=== PATIENT | female | born 1955 | race Caucasian/White ===

== ENCOUNTER → 2016-11-18 | Outpatient (CLI) | payer MEDICAID ==
[2016-11-18 09:25] LABS: Basophils # (A) 0.1 k/uL (0-0.2); Basophils % (A) 1 %; CH 30.5; CHCM 34.4; Eosinophils # (A) 0.3 k/uL (0-0.7); Eosinophils % (A) 3 %; HCT 42.2 % (34.0-46.0); HDW 2.84; HGB 14.1 gm/dL (11.4-16.0); Luc # (Auto) 0.23; Luc % (Auto) 3; Lymphocytes # (A) 2.3 k/uL (1.0-4.8); Lymphocytes % (A) 26 %; MCH 29.9 pg (25.0-35.0); MCHC 33.5 g/dL (31.0-37.0); MCV 89.2 fL (80.0-100.0); Mean Platelet Volume 7.8; Monocytes # (A) 0.4 k/uL (0-1.0); Monocytes % (A) 4 %; Neutrophils # (A) 5.5 k/uL (1.3-7.7); Neutrophils % (A) 63 %; RBC 4.73 m/uL (3.80-5.40); RDW 13.1 % (11.5-15.5); WBC 8.8 k/uL (3.8-10.6); WBC (Perox) 8.63
[2016-11-18 09:58] LABS: Hemoglobin A1C 5.3 % (4.2-6.1)
[2016-11-18 10:17] LABS: ALT 25 U/L (9-52); AST 21 U/L (14-36); Alkaline Phosphatase 79 U/L (38-126); Anion Gap 11 mmol/L; Blood Urea Nitrogen 17 mg/dL (7-17); Calcium 9.7 mg/dL (8.4-10.2); Carbon Dioxide 27 mmol/L (22-30); Chloride 105 mmol/L (98-107); Cholesterol 188 mg/dL (<200); Glucose 96 mg/dL (74-99); HDL Cholesterol 45 mg/dL (40-60); Non-African American GFR(MDRD) >60 (>60 ml/min/1.73 sqM); Potassium 4.6 mmol/L (3.5-5.1); Sodium 143 mmol/L (137-145); Total Bilirubin 0.6 mg/dL (0.2-1.3); Total Protein 7.2 g/dL (6.3-8.2); Triglycerides 138 mg/dL (<150)
== END ==
LOC: LABWHC1 08:26
PROVIDERS: ATTEND Internal Medicine Geriatric Medicine
DX: E78.00 Pure hypercholesterolemia, unspecified (principal); R03.0 Elevated blood-pressure reading, without diagnosis of hypertension; R73.9 Hyperglycemia, unspecified
CPT/HCPCS: 36415; 80053; 80061; 83036; 84439; 84443; 85025

== ENCOUNTER → 2017-06-30 | Outpatient (CLI) | payer MEDICAID ==
--- NOTE | 2017-07-01 08:35 | MM ---
Reason for exam: screening (asymptomatic). Last mammogram was performed 1 year and 11 months ago. History: Patient is postmenopausal. Took hormonal contraceptives for 6 months beginning at age 20. Physical Findings: A clinical breast exam by your physician is recommended on an annual basis and results should be correlated with mammographic findings. MG 3D Screening Mammo W/Cad Bilateral CC and MLO view(s) were taken. Prior study comparison: July 27, 2015, bilateral MG 3d work up w/cad ANU. July 19, 2015, bilateral MG screening mammo w CAD. There is chronic nodularity in the right breast. No significant changes when compared with prior studies. ASSESSMENT: Benign, BI-RAD 2 RECOMMENDATION: Routine screening mammogram of both breasts in 1 year.
== END | disposition home or self-care (01) ==
LOC: RADMAMWWP 09:37
PROVIDERS: ATTEND Internal Medicine Geriatric Medicine
DX: Z12.31 Encounter for screening mammogram for malignant neoplasm of breast (principal)
CPT/HCPCS: 77063; G0202

== ENCOUNTER 2017-10-18 10:12 | Emergency (ER) | payer MEDICAID ==
[2017-10-18 10:21] VITALS: BP 133/88; PULSE 89; RESP 16; TEMP 98.1
[2017-10-18] MEDS ORDERED: PROPARACAINE 0.5% OPHTH DROPS 15 ML BTL ONE (10:37)
[2017-10-18] MEDS ORDERED: PROPARACAINE 0.5% OPHTH DROPS 15 ML BTL RIGHT EYE STA (10:53)
--- NOTE | 2017-10-18 10:56 | ED ---
General Adult HPI - General Chief complaint: Eye Problems Stated complaint: VISUAL DISTURBANCE IN RT EYE Time Seen by Provider: 10/18/17 10:30 Source: patient, RN notes reviewed, old records reviewed Mode of arrival: ambulatory Limitations: no limitations - History of Present Illness Initial comments: 62-year-old female presents for evaluation of flashing and floating lights in her right eye. Patient has no significant past medical history. She did have an episode similar to this several months ago in her left eye. This was diagnosed as vitreous hemorrhage. She is seeing a cna hha and retinal specialist. Symptoms began yesterday evening. They are isolated to her right eye only. She denies any loss of vision, no darkening of the visual field. She does state that approximately 5 days ago her granddaughter bumped her right eye. She had no issues immediately following this injury. Denies any focal weakness. Denies vision changes. - Related Data Home Medications Medication Instructions Recorded Confirmed Ergocalciferol (Vitamin D2) 50,000 unit PO Q14D 06/13/14 07/09/17 [Drisdol] Lovastatin [Mevacor] 40 mg PO MOTUWETHFR 06/13/14 07/09/17 Melatonin 5 mg PO HS PRN 08/12/16 07/09/17 Cetirizine HCl [Zyrtec] 10 mg PO DAILY PRN 07/09/17 07/09/17 Ibuprofen [Motrin] 200 - 400 mg PO Q6HR PRN 07/09/17 07/09/17 Allergies Allergy/AdvReac Type Severity Reaction Status Date / Time codeine AdvReac Nausea Verified 10/18/17 10:21 Review of Systems ROS Statement: Those systems with pertinent positive or pertinent negative responses have been documented in the HPI. ROS Other: All systems not noted in ROS Statement are negative. Past Medical History Past Medical History: Hyperlipidemia Additional Past Medical History / Comment(s): hx gestational hypertension, hx anemia, hx polyps, hemorrhage left eye History of Any Multi-Drug Resistant Organisms: None Reported Past Surgical History: Hysterectomy, Orthopedic Surgery Additional Past Surgical History / Comment(s): suad hands trigger finger, D&C, retrocele repair, hemorrhoidectomy Past Anesthesia/Blood Transfusion Reactions: Motion Sickness, Postoperative Nausea & Vomiting (PONV) Past Psychological History: No Psychological Hx Reported Smoking Status: Never smoker Past Alcohol Use History: Occasional Past Drug Use History: None Reported - Past Family History Sister(s) Family Medical History: Cancer General Exam Limitations: no limitations General appearance: alert, in no apparent distress Head exam: Present: atraumatic, normocephalic Eye exam: Present: normal appearance, PERRL, EOMI. Absent: scleral icterus, conjunctival injection, nystagmus, periorbital swelling, periorbital tenderness ENT exam: Present: normal exam Neck exam: Present: normal inspection. Absent: tenderness, meningismus Respiratory exam: Present: normal lung sounds bilaterally, respiratory distress Cardiovascular Exam: Present: regular rate, normal rhythm GI/Abdominal exam: Present: soft. Absent: distended, tenderness Extremities exam: Present: normal inspection, normal capillary refill. Absent: pedal edema Neurological exam: Present: alert, oriented X3, CN II-XII intact, normal gait. Absent: motor sensory deficit Psychiatric exam: Present: normal affect, normal mood Skin exam: Present: warm, dry, intact. Absent: cyanosis, diaphoretic Course Vital Signs 10/18/17 10:18 Temperature 98.1 F Pulse Rate 89 Respiratory 16 Rate Blood Pressure 133/88 O2 Sat by Pulse 98 Oximetry Medical Decision Making - Medical Decision Making 62-year-old female presenting with floaters or flashers in her right eye. On exam patient is well-appearing, no acute distress, nonfocal neurologic exam. Visualization of the anterior eye is within normal limits, normal pupillary reflex, no corneal abrasion. Intraocular pressure in the right eye is 13. Visual acuity 20/25. No visual field deficit. Ultrasound of the right globe shows several hyperechoic flashers in the posterior vitreous. No retinal detachment. Case is discussed with Dr. Kearney, patient's cna hha, he will see the patient on Friday for further evaluation. No other intervention needed at this time. Diagnosis: Concern for vitreous hemorrhage Disposition Clinical Impression: Vitreous hemorrhage Disposition: HOME SELF-CARE Condition: Good Instructions: Visual Floaters (ED) Referrals: Sami Soriano MD [Primary Care Provider] - 1-2 days Ramos Kearney MD [STAFF PHYSICIAN] - 1-2 days Time of Disposition: 10:56
== END 2017-10-18 11:07 | disposition home or self-care (01) ==
LOC: EC 10:12
DX: H43.11 Vitreous hemorrhage, right eye (principal); E78.5 Hyperlipidemia, unspecified; D64.9 Anemia, unspecified; Z79.899 Other long term (current) drug therapy; Z88.5 Allergy status to narcotic agent
CPT/HCPCS: 99283

== ENCOUNTER → 2017-12-02 | Outpatient (CLI) | payer MEDICAID ==
[2017-12-02 08:55] LABS: Basophils # (A) 0.1 k/uL (0-0.2); Basophils % (A) 1 %; Eosinophils # (A) 0.3 k/uL (0-0.7); Eosinophils % (A) 3 %; HCT 40.8 % (34.0-46.0); HGB 14.2 gm/dL (11.4-16.0); Lymphocytes # (A) 2.3 k/uL (1.0-4.8); Lymphocytes % (A) 28 %; MCH 29.9 pg (25.0-35.0); MCHC 34.8 g/dL (31.0-37.0); MCV 85.9 fL (80.0-100.0); Mean Platelet Volume 7.1; Monocytes # (A) 0.4 k/uL (0-1.0); Monocytes % (A) 5 %; Neutrophils # (A) 5.1 k/uL (1.3-7.7); Neutrophils % (A) 61 %; Platelet Count 343 k/uL (150-450); RBC 4.74 m/uL (3.80-5.40); RDW 12.7 % (11.5-15.5); WBC 8.3 k/uL (3.8-10.6)
[2017-12-02 09:11] LABS: T4, Free (Free Thyroxine) 0.96 ng/dL (0.78-2.19)
[2017-12-02 09:13] LABS: ALT 35 U/L (9-52); AST 19 U/L (14-36); Albumin 3.9 g/dL (3.5-5.0); Alkaline Phosphatase 77 U/L (38-126); Anion Gap 12 mmol/L; Blood Urea Nitrogen 19 mg/dL (7-17); Calcium 9.8 mg/dL (8.4-10.2); Carbon Dioxide 25 mmol/L (22-30); Chloride 107 mmol/L (98-107); Cholesterol 203 mg/dL (<200); Glucose 104 mg/dL (74-99); HDL Cholesterol 41 mg/dL (40-60); LDL Cholesterol,Calculated 135 mg/dL (0-99); Potassium 4.6 mmol/L (3.5-5.1); Sodium 144 mmol/L (137-145); Total Bilirubin 0.5 mg/dL (0.2-1.3); Total Protein 6.7 g/dL (6.3-8.2); Triglycerides 137 mg/dL (<150)
[2017-12-02 19:22] LABS: Hemoglobin A1C 5.4 % (4.0-6.0)
== END | disposition home or self-care (01) ==
LOC: LABWHC1 08:06
PROVIDERS: ATTEND Internal Medicine Geriatric Medicine
DX: E78.00 Pure hypercholesterolemia, unspecified (principal); R00.1 Bradycardia, unspecified; R13.10 Dysphagia, unspecified; R03.0 Elevated blood-pressure reading, without diagnosis of hypertension; R73.9 Hyperglycemia, unspecified
CPT/HCPCS: 36415; 80053; 80061; 83036; 84439; 84443; 85025

== ENCOUNTER 2017-12-10 08:54 | Day surgery (SDC) | payer MEDICAID ==
[2017-12-09 11:01] VITALS: BMI 33.9
[~2017-12-10 08:54] MED LIST: LACTATED RINGERS 1,000 ML IV SCH
[2017-12-10 10:54] VITALS: RESP 18; TEMP 98.3
[2017-12-10] MEDS ORDERED: LIDOCAINE 1% 20 ML VIAL (10MG/ML) FOR IV START INTRADERMA ONE (10:57)
[2017-12-10] MEDS ORDERED: PROPOFOL 10 MG/ML 20 ML VIAL IV ONE (11:16)
[2017-12-10] MEDS ORDERED: LIDOCAINE 1% INJ 10MG/ML (20 ML MDV) ONE (11:16)
[2017-12-10] MEDS ORDERED: fentaNYL (PF) 50 MCG/ML 2 ML AMP ONE (11:16)
--- NOTE | 2017-12-10 11:29 | P.PCN ---
Date of Procedure: 12/10/17 Procedure(s) Performed: BRIEF HISTORY: Patient is a 62-year-old, pleasant, white female, scheduled for an upper endoscopy as a part of evaluation of intermittent dysphagia to solids for the last 1 year duration. She has the symptoms once or twice a week often with bread and meat. She is hence scheduled for an upper endoscopy with possible dilation today. PROCEDURE PERFORMED: Esophagogastroduodenoscopy with biopsy. PREOPERATIVE DIAGNOSIS: .Intermittent dysphagia to solids of 1 year duration IV sedation per anesthesia. PROCEDURE: After informed consent was obtained, the patient was brought into the endoscopy unit. IV sedation was administered by Anesthesia under continuous monitoring. Initially the Olympus GIF-140 video endoscope was inserted into the mouth. Esophagus intubated without any difficulty. It was gradually advanced into the stomach and duodenum and carefully examined. The bulb and the second part of the duodenum appeared normal. The scope at this time was withdrawn to the stomach, adequately insufflated with air, and upon careful examination, mucosa of the antrum, had mild gastritis and biopsies for H. pylori were done. The body, cardia and the fundus appeared normal. The scope was then withdrawn into the esophagus. small sliding Hiatal hernia noted. The GE junction was located at 39 cm from the incisors. There were linear erosions and once position ulceration noted in the distal esophagus consistent with LA grade C reflux esophagitis. The rest of the esophagus appeared normal and the patient tolerated the procedure well. IMPRESSION: 1. Linear erosions in the distal esophagus consistent with LA grade C reflux esophagitis. 2. Early distal esophageal stricture. 3. Mild antral gastritis RECOMMENDATIONS: The findings of this examination were discussed with the patient as well as a family. She was advised to follow with the biopsy results. She will be started on Prilosec 20 mg daily to be taken half hour before breakfast and follow antireflux measures. She was advised to follow up in office in 6 weeks if she still has dysphagia.
[2017-12-10 11:58] VITALS: BP 135/93; PULSE 71
== END 2017-12-10 12:16 | disposition home or self-care (01) ==
LOC: ORWHC2ENDO 08:54
PROVIDERS: ATTEND Internal Medicine Gastroenterology
DX: K29.70 Gastritis, unspecified, without bleeding (principal); K44.9 Diaphragmatic hernia without obstruction or gangrene; K22.10 Ulcer of esophagus without bleeding; K22.2 Esophageal obstruction; E78.5 Hyperlipidemia, unspecified; E66.9 Obesity, unspecified; Z79.1 Long term (current) use of non-steroidal anti-inflammatories (NSAID); Z88.5 Allergy status to narcotic agent; Z90.710 Acquired absence of both cervix and uterus; Z68.33 Body mass index [BMI] 33.0-33.9, adult
CPT/HCPCS: 88305; 43239; J2001; J3010; J2704

== ENCOUNTER 2018-03-07 11:00 | Emergency (ER) | payer MEDICAID, OTHER ==
[2018-03-07 11:06] VITALS: BP 157/96; PULSE 94; RESP 18; TEMP 97.9
--- NOTE | 2018-03-07 12:22 | XR ---
EXAMINATION TYPE: XR scapula LT DATE OF EXAM: 03/07/2018 COMPARISON: NONE HISTORY: 62-year-old female with pain after fall today TECHNIQUE: 2 views FINDINGS: Mild degenerative joint space narrowing with marginal spurring and capsular hypertrophy of the acromi on clavicular joint. AC joint is intact. Visualized left hemithorax is clear. No acute fracture or di slocation seen. IMPRESSION: No acute osseous abnormality seen. Mild AC joint OA.
--- NOTE | 2018-03-07 12:23 | ED ---
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 Review of system is unremarkable otherwise - Related Data Home Medications Medication Instructions Recorded Confirmed Ergocalciferol (Vitamin D2) 50,000 unit PO Q14D 06/13/14 03/07/18 [Drisdol] Lovastatin [Mevacor] 40 mg PO MOTUWETHFR 06/13/14 03/07/18 Melatonin 5 mg PO HS PRN 08/12/16 03/07/18 Cetirizine HCl [Zyrtec] 10 mg PO DAILY PRN 07/09/17 03/07/18 Ibuprofen [Motrin] 200 - 400 mg PO Q6HR PRN 07/09/17 03/07/18 Omeprazole [PriLOSEC] 20 mg PO AC-BRKFST 03/07/18 03/07/18 Allergies Allergy/AdvReac Type Severity Reaction Status Date / Time codeine AdvReac Nausea Verified 03/07/18 11:06 Review of Systems ROS Statement: Those systems with pertinent positive or pertinent negative responses have been documented in the HPI. ROS Other: All systems not noted in ROS Statement are negative. Past Medical History Past Medical History: Eye Disorder, Hyperlipidemia Additional Past Medical History / Comment(s): hx anemia, hx polyps, hemorrhage both eye related to retinal tears, intermittent abd. discomfort History of Any Multi-Drug Resistant Organisms: None Reported Past Surgical History: Hysterectomy, Orthopedic Surgery Additional Past Surgical History / Comment(s): suad hands trigger finger, D&C, retrocele repair, hemorrhoidectomy Past Anesthesia/Blood Transfusion Reactions: Motion Sickness, Postoperative Nausea & Vomiting (PONV) Past Psychological History: No Psychological Hx Reported Smoking Status: Never smoker Past Alcohol Use History: None Reported Past Drug Use History: None Reported - Past Family History Sister(s) Family Medical History: Cancer General Exam - General Exam Comments Initial Comments: General: The patient is awake and alert, in no distress, and does not appear acutely ill. Skin: Skin is warm and dry and no rashes or lesions are noted. Eye: Pupils are equal, round and reactive to light, extra-ocular movements are intact; there is normal conjunctiva bilaterally. Ears, nose, mouth and throat: There are moist mucous membranes and no oral lesions. Neck: The neck is supple, there is no tenderness or JVD. Cardiovascular: There is a regular rate and rhythm. No murmur, rub or gallop is appreciated. Respiratory: To auscultation bilateral, no wheezing no rhonchi no distress respiratory martinez noticed Gastrointestinal: Soft, non-distended, non-tender abdomen without masses or organomegaly noted. There is no rebound or guarding present. Bowel sounds are unremarkable. Back: There is no tenderness to palpation in the midline. There is no obvious deformity. Musculoskeletal: Normal ROM, as well as right elbow is concerned and right knee both has a full range of motion no effusion or no trauma related changes noticed left shoulder has full range of motion patient is tender over the spine of the left scapula no tenderness no noticed over the before meals joint as well clavicle was palpated although of interest to all the way from sternal notch to the before meals joint. No tenderness noticed over the deltoid, triceps, biceps. No neurovascular compromise noticed of the left upper extremity Neurological: CN II-XII intact, Cranial nerves III through XII are intact. There are no obvious motor or sensory deficits. Coordination appears grossly intact. Speech is normal. Psychiatric: Cooperative, appropriate mood & affect, normal judgment. Limitations: no limitations Course Vital Signs 03/07/18 11:03 Temperature 97.9 F Pulse Rate 94 Respiratory 18 Rate Blood Pressure 157/96 O2 Sat by Pulse 98 Oximetry Disposition Clinical Impression: Fall, Abrasion, right knee, initial encounter, Injury of left shoulder Clinical Impression: (Ruled Out): Right shoulder injury Disposition: HOME SELF-CARE Condition: Good Instructions: Shoulder Sprain (ED) Additional Instructions: She is advised Tylenol or Motrin as needed basis, follow with family doctor or return to the ER if symptoms get worse Is patient prescribed a controlled substance at d/c from ED?: No Referrals: Sami Soriano MD [Primary Care Provider] - 1-2 days
== END 2018-03-07 12:37 | disposition home or self-care (01) ==
LOC: EC 11:00
DX: S80.211A Abrasion, right knee, initial encounter (principal); S49.92XA Unspecified injury of left shoulder and upper arm, initial encounter; S59.901A Unspecified injury of right elbow, initial encounter; E78.5 Hyperlipidemia, unspecified; Z79.899 Other long term (current) drug therapy; Z88.5 Allergy status to narcotic agent; Z87.19 Personal history of other diseases of the digestive system; W01.0XXA Fall on same level from slipping, tripping and stumbling without subsequent striking against object, initial encounter; Y92.238 Other place in hospital as the place of occurrence of the external cause; Y99.0 Civilian activity done for income or pay
CPT/HCPCS: 99283

== ENCOUNTER 2018-03-13 10:51 | Day surgery (SDC) | payer MEDICAID ==
[2018-03-09 16:05] VITALS: BMI 33.9
[~2018-03-13 10:51] MED LIST changes: +DEXAMETHASONE SOD PHOSPHATE 10 MG/ML 1 ML VIAL IV ONE; +HYDROmorphone 0.5 MG/0.5 ML SYRINGE IVP PRN; +MIDAZOLAM 2 MG/2 ML VIAL IV PRN; +ONDANSETRON 4 MG/2 ML VIAL IVP ONE; +ceFAZolin IN SWFI 2 GM/20 ML SYRINGE IVP ONE
[2018-03-13] MEDS ORDERED: SCOPOLAMINE 1.5MG/72HR PATCH TRANSDERM ONE (11:29)
[2018-03-13] MEDS ORDERED: LIDOCAINE 1% 20 ML VIAL (10MG/ML) FOR IV START INTRADERMA ONE (11:31)
[2018-03-13] MEDS ORDERED: SUCCINYLCHOLINE CHLORIDE 100 MG/5 ML SYR IV ONE (11:54)
[2018-03-13] MEDS ORDERED: MIDAZOLAM 2 MG/2 ML VIAL ONE (11:54)
[2018-03-13] MEDS ORDERED: fentaNYL (PF) 50 MCG/ML 2 ML AMP ONE (11:54)
[2018-03-13] MEDS ORDERED: LIDOCAINE 1% INJ 10MG/ML (20 ML MDV) ONE (11:54)
[2018-03-13] MEDS ORDERED: PROPOFOL 10 MG/ML 20 ML VIAL IV ONE (11:54)
[2018-03-13] MEDS ORDERED: HYDROmorphone (PF) 1 MG/ML ONE (11:54)
--- NOTE | 2018-03-13 12:51 | FL ---
EXAMINATION TYPE: FL guidance operating room DATE OF EXAM: 03/13/2018 FLUOROSCOPY Fluoroscopy time of 1 seconds was used during cheilectomy. 0 image/s document/s the procedure.
[2018-03-13 12:54] VITALS: TEMP 98
--- NOTE | 2018-03-13 13:06 | P.OP ---
Date of Procedure: 03/13/18 Preoperative Diagnosis: 1. Right hallux valgus Postoperative Diagnosis: Right hallux valgus Procedure(s) Performed: Right simple bunionectomy Anesthesia: HARDEEP Surgeon: Chemo Mathews Estimated Blood Loss (ml): 0 IV fluids (ml): 400 Pathology: none sent Condition: stable Disposition: PACU Indications for Procedure: The patient is a previously healthy 62-year-old female who presented to my office with a right hallux valgus deformity. We discussed both nonoperative and operative treatment. The patient has been dealing with this for over 6 months and has had multiple attempts at nonsurgical treatment all with diminishing relief. The patient requested surgery. We discussed different surgical options for her. The patient stated that she just wanted a simple bunionectomy and was not interested in any procedure that required a period of protected weightbearing. We discussed potential risks of doing an isolated supple bunionectomy including under correction and recurrence. The patient acknowledged these risks but stated she was willing to accept a recurrent deformity and only wanted to go forward with a simple bunionectomy. We discussed the potential risks and complications of surgery including but not limited to risk of anesthesia, risk of superficial infection, risk of deep infection, risk of delayed wound healing, risk of damage to local blood vessels or nerves, risk of intraoperative fracture, risk of postoperative fracture, risk of recurrent deformity, risk of hallux varus deformity, risk of chronic pain, risk of chronic swelling, dissatisfaction with surgery, DVT, PE, and possibly loss of life or limb. The patient voiced her understanding of all of these potential risks and that other complications are possible. She provided her verbal and written consent to go forward with surgery. Description of Procedure: The patient was identified in preoperative holding and the correct right leg was marked with my initials. I reviewed the consent form with the patient and all of her questions were answered. The patient was then brought back to the operating room by anesthesia. She was positioned on the OR table and a general anesthetic and preoperative antibiotics were administered. A tourniquet was applied to the proximal aspect of the right leg. All bony prominences were well -padded. The right leg was then prepped and draped in the standard sterile fashion. Prior to starting surgery timeout was performed identifying the correct patient, operative extremity, and procedure. The patient's leg was then elevated, exsanguinated with an Esmarch bandage, and the tourniquet was inflated to 250 mmHg. I began by outlining a dorsomedial incision over the first MTP joint. Skin incision was made to 15 blade scalpel. Dissection was carried down carefully to the subcutaneous tissue with tenotomy scissors. A capsulotomy was performed of the medial joint capsule. A microsagittal saw was then used to remove a small portion of the medial eminence taking care to stay medial to the sulcus. A rasp and rongeur was used to contour the bone. The wound was copiously irrigated. A small ellipse of the capsule was removed. The joint was distracted and a clean 15 blade knife was used to release the lateral aspect of the MTP joint through the joint. A varus force was applied to the toe to help correct the valgus deformity. The wound was again irrigated. A capsulorrhaphy was then prepared using 0 Vicryl [id number] stitches. Final fluoroscopic images were taken showing correction of the hallux valgus deformity. The deep subcu was reapproximated using 3-0 Monocryl. The skin was closed using 3-0 nylon horizontal mattress stitches. 10 mL's of half percent Marcaine was injected around the incision. A sterile dressing consisting of Betadine soaked Adaptic, 4 x 4, and web rolls were applied. The patient was awoken from her anesthetic, transferred to a gurney and brought to PACU having toe the procedure well.
--- NOTE | 2018-03-13 13:06 | XR ---
Limited right foot History: cheilectomy Intraoperative C-arm image documents the procedure
[2018-03-13] MEDS ORDERED: HYDROcodone/APAP 5-325MG 1 EACH TAB PO ONE (13:41)
[2018-03-13 14:07] VITALS: RESP 18
[2018-03-13 14:49] VITALS: BP 135/75; PULSE 74
== END 2018-03-13 14:01 | disposition home or self-care (01) ==
LOC: OR 10:51
PROVIDERS: ATTEND Orthopaedic Surgery
DX: M20.11 Hallux valgus (acquired), right foot (principal); M21.611 Bunion of right foot; M19.071 Primary osteoarthritis, right ankle and foot; E78.5 Hyperlipidemia, unspecified; K21.9 Gastro-esophageal reflux disease without esophagitis; Z79.1 Long term (current) use of non-steroidal anti-inflammatories (NSAID); Z79.899 Other long term (current) drug therapy; Z88.5 Allergy status to narcotic agent; Z87.891 Personal history of nicotine dependence
CPT/HCPCS: 73620; 28292; J2250; J1100; J2405; J2001; J3010; J1170; J0330; J2704; J0690

== ENCOUNTER 2018-10-20 10:18 | Emergency (ER) | payer MEDICAID ==
[2018-10-20 10:22] VITALS: RESP 18
[2018-10-20] MEDS ORDERED: ONDANSETRON 4 MG/2 ML VIAL IVP STA (12:45)
[2018-10-20] MEDS ORDERED: SODIUM CHLORIDE 0.9% 500 ML 500 ML IV STA (12:45)
[2018-10-20] MEDS ORDERED: diphenhydrAMINE 50 MG/ML 1 ML VIAL IVP STA (12:45)
--- NOTE | 2018-10-20 13:25 | CT ---
EXAMINATION TYPE: CT brain wo con DATE OF EXAM: 10/20/2018 COMPARISON: 03/29/2010 HISTORY: High blood pressure, dizziness. CT DLP: 1078.[address] of the brain was performed. The ventricles, basal cisterns and sulci overlying the cerebral convexities demonstrate mild enlargem ent. There is no evidence for intracranial hemorrhage or sulcal effacement. There is decreased attenuation about the periventricular white matter and deep white matter of both c erebral hemispheres, compatible with chronic small vessel ischemia. Differential diagnosis does inclu de demyelination. No mass effects are seen.No midline shift. Osseous calvarium is intact. If symptoms persist consider MRI. IMPRESSION: 1. Age related atrophic and chronic small vessel ischemic change without acute intracranial process s een at this time.
--- NOTE | 2018-10-20 13:30 | ED ---
Dizziness HPI - General Chief Complaint: Dizziness Stated Complaint: dizzy, nausea, elevated BP Time Seen by Provider: 10/20/18 12:29 Source: patient Mode of arrival: wheelchair Limitations: no limitations - History of Present Illness Initial Comments: This is a 63-year-old female the ER for evaluation. Patient has having vertiginous type symptoms, dizziness with ambulation and dizziness with position. She has had symptoms of dizziness before similar to this. No history of CVA. No trauma. No fevers. No modifying factors for improving symptoms, symptoms are worse with movement MD Complaint: dizziness, difficulty walking -: hour(s) Timing: gradual onset Description: "room spinning", off-balance History of Same: Yes History of Trauma: No Severity: mild Improves With: remaining still Worsens With: movement Associated Symptoms: denies other symptoms - Related Data Home Medications Medication Instructions Recorded Confirmed Ergocalciferol (Vitamin D2) 50,000 unit PO Q14D 06/13/14 10/20/18 [Drisdol] Lovastatin [Mevacor] 40 mg PO MOTUWETHFR 06/13/14 10/20/18 Cetirizine HCl [Zyrtec] 10 mg PO DAILY PRN 07/09/17 10/20/18 Ibuprofen [Motrin] 200 - 400 mg PO Q6HR PRN 07/09/17 10/20/18 Omeprazole [PriLOSEC] 20 mg PO MOTUWETHFR 03/07/18 10/20/18 Previous Rx's Medication Instructions Recorded Meclizine [Antivert] 25 mg PO TID #15 tab 10/20/18 Ondansetron Odt [Zofran ODT] 4 mg PO Q8HR PRN #10 tab 10/20/18 Allergies Allergy/AdvReac Type Severity Reaction Status Date / Time codeine AdvReac Nausea Verified 10/20/18 14:11 Review of Systems ROS Statement: Those systems with pertinent positive or pertinent negative responses have been documented in the HPI. ROS Other: All systems not noted in ROS Statement are negative. Past Medical History Past Medical History: Eye Disorder, Hyperlipidemia, Hypertension Additional Past Medical History / Comment(s): hx anemia, hx polyps, hemorrhage both eye related to retinal tears, intermittent abd. discomfort History of Any Multi-Drug Resistant Organisms: None Reported Past Surgical History: Hysterectomy, Orthopedic Surgery Additional Past Surgical History / Comment(s): suad hands trigger finger, D&C, retrocele repair, hemorrhoidectomy Past Anesthesia/Blood Transfusion Reactions: Motion Sickness, Postoperative Nausea & Vomiting (PONV) Past Psychological History: No Psychological Hx Reported Smoking Status: Former smoker Past Alcohol Use History: Occasional Past Drug Use History: None Reported - Past Family History Sister(s) Family Medical History: Cancer General Exam - General Exam Comments Initial Comments: NIH is 0, finger-nose is negative heel neely is negative Limitations: no limitations General appearance: alert, in no apparent distress Head exam: Present: atraumatic, normocephalic, normal inspection Eye exam: Present: normal appearance, PERRL, EOMI. Absent: scleral icterus, conjunctival injection, periorbital swelling ENT exam: Present: normal exam, mucous membranes moist Neck exam: Present: normal inspection. Absent: tenderness, meningismus, lymphadenopathy Respiratory exam: Present: normal lung sounds bilaterally. Absent: respiratory distress, wheezes, rales, rhonchi, stridor Cardiovascular Exam: Present: regular rate, normal rhythm, normal heart sounds. Absent: systolic murmur, diastolic murmur, rubs, gallop, clicks GI/Abdominal exam: Present: soft, normal bowel sounds. Absent: distended, tenderness, guarding, rebound, rigid Extremities exam: Present: normal inspection, full ROM, normal capillary refill. Absent: tenderness, pedal edema, joint swelling, calf tenderness Back exam: Present: normal inspection Neurological exam: Present: alert, oriented X3, CN II-XII intact Psychiatric exam: Present: normal affect, normal mood Skin exam: Present: warm, dry, intact, normal color. Absent: rash Course Vital Signs 10/20/18 10/20/18 10:20 14:22 Temperature 97.5 F L 97.8 F Pulse Rate 80 84 Respiratory 18 18 Rate Blood Pressure 163/92 158/78 O2 Sat by Pulse 97 98 Oximetry - Reevaluation(s) Reevaluation #1: 10/20/18 16:44 Medical record is reviewed Reevaluation #2: 10/20/18 16:44 Dr. Dennis did evaluate patient here in the emergency room Reevaluation #3: 10/20/18 16:44 Patient is able to actively without any difficulty or ataxia EKG Findings - EKG Comments: EKG Findings:: EKG shows sinus rhythm rate of 71, MD 72, QRS 100, QTC 447 Medical Decision Making - Medical Decision Making 63 female the ER for evaluation of dizziness vertiginous symptoms. CT brain negative labwork is normal. Patient was seen in ER by Dr. cisneros her will see patient on outpatient basis - Lab Data Result diagrams: 10/20/18 13:26 10/20/18 13:26 Lab Results 10/20/18 10/20/18 Range/Units 13:26 13:26 WBC 10.2 (3.8-10.6) k/uL RBC 4.84 (3.80-5.40) m/uL Hgb 14.1 (11.4-16.0) gm/dL Hct 42.4 (34.0-46.0) % MCV 87.7 (80.0-100.0) fL MCH 29.2 (25.0-35.0) pg MCHC 33.3 (31.0-37.0) g/dL RDW 13.3 (11.5-15.5) % Plt Count 348 (150-450) k/uL Neutrophils % 80 % Lymphocytes % 14 % Monocytes % 3 % Eosinophils % 1 % Basophils % 1 % Neutrophils # 8.2 H (1.3-7.7) k/uL Lymphocytes # 1.4 (1.0-4.8) k/uL Monocytes # 0.4 (0-1.0) k/uL Eosinophils # 0.1 (0-0.7) k/uL Basophils # 0.1 (0-0.2) k/uL Sodium 142 (137-145) mmol/L Potassium 4.3 (3.5-5.1) mmol/L Chloride 107 (98-107) mmol/L Carbon Dioxide 27 (22-30) mmol/L Anion Gap 8 mmol/L BUN 17 (7-17) mg/dL Creatinine 0.74 (0.52-1.04) mg/dL Est GFR (CKD-EPI)AfAm >90 (>60 ml/min/1.73 sqM) Est GFR (CKD-EPI)NonAf 87 (>60 ml/min/1.73 sqM) Glucose 114 H (74-99) mg/dL Calcium 9.9 (8.4-10.2) mg/dL Total Bilirubin 0.7 (0.2-1.3) mg/dL AST 22 (14-36) U/L ALT 34 (9-52) U/L Alkaline Phosphatase 105 (38-126) U/L Total Protein 7.8 (6.3-8.2) g/dL Albumin 4.6 (3.5-5.0) g/dL - Radiology Data Radiology results: report reviewed (CT brain is negative for acute disease), image reviewed Disposition Clinical Impression: Neuronitis, Benign paroxysmal positional vertigo Disposition: HOME SELF-CARE Condition: Good Instructions (If sedation given, give patient instructions): Dizziness (ED) Prescriptions: Meclizine [Antivert] 25 mg PO TID #15 tab Ondansetron Odt [Zofran ODT] 4 mg PO Q8HR PRN #10 tab PRN Reason: nausea/vomiting Is patient prescribed a controlled substance at d/c from ED?: No Referrals: Sami Soriano MD [Primary Care Provider] - 1-2 days
[2018-10-20 13:41] LABS: Basophils # (A) 0.1 k/uL (0-0.2); Basophils % (A) 1 %; Eosinophils # (A) 0.1 k/uL (0-0.7); Eosinophils % (A) 1 %; HCT 42.4 % (34.0-46.0); HGB 14.1 gm/dL (11.4-16.0); Lymphocytes # (A) 1.4 k/uL (1.0-4.8); Lymphocytes % (A) 14 %; MCH 29.2 pg (25.0-35.0); MCHC 33.3 g/dL (31.0-37.0); MCV 87.7 fL (80.0-100.0); Mean Platelet Volume 7.5; Monocytes # (A) 0.4 k/uL (0-1.0); Monocytes % (A) 3 %; Neutrophils # (A) 8.2 k/uL (1.3-7.7); Neutrophils % (A) 80 %; Platelet Count 348 k/uL (150-450); RBC 4.84 m/uL (3.80-5.40); RDW 13.3 % (11.5-15.5); WBC 10.2 k/uL (3.8-10.6)
[2018-10-20 13:53] LABS: ALT 34 U/L (9-52); AST 22 U/L (14-36); Albumin 4.6 g/dL (3.5-5.0); Alkaline Phosphatase 105 U/L (38-126); Anion Gap 8 mmol/L; Blood Urea Nitrogen 17 mg/dL (7-17); Calcium 9.9 mg/dL (8.4-10.2); Carbon Dioxide 27 mmol/L (22-30); Chloride 107 mmol/L (98-107); Glucose 114 mg/dL (74-99); Potassium 4.3 mmol/L (3.5-5.1); Sodium 142 mmol/L (137-145); Total Bilirubin 0.7 mg/dL (0.2-1.3); Total Protein 7.8 g/dL (6.3-8.2)
[2018-10-20 14:23] VITALS: BP 158/78; PULSE 84; TEMP 97.8
== END 2018-10-20 14:22 | disposition home or self-care (01) ==
LOC: EC 10:18
DX: H81.10 Benign paroxysmal vertigo, unspecified ear (principal); G58.9 Mononeuropathy, unspecified; E78.5 Hyperlipidemia, unspecified; I10 Essential (primary) hypertension; Z87.891 Personal history of nicotine dependence; Z79.899 Other long term (current) drug therapy; Z88.5 Allergy status to narcotic agent
CPT/HCPCS: 36415; 93005; 80053; 85025; 70450; 99284; 96374; 96375; 96361; J1200; J2405

== ENCOUNTER → 2018-12-04 | Outpatient (CLI) | payer MEDICAID ==
[2018-12-04 08:17] LABS: Basophils # (A) 0.1 k/uL (0-0.2); Basophils % (A) 1 %; Eosinophils # (A) 0.3 k/uL (0-0.7); Eosinophils % (A) 3 %; HGB 14.1 gm/dL (11.4-16.0); Lymphocytes % (A) 22 %; MCH 29.1 pg (25.0-35.0); MCHC 32.9 g/dL (31.0-37.0); MCV 88.5 fL (80.0-100.0); Mean Platelet Volume 7.8; Monocytes # (A) 0.5 k/uL (0-1.0); Monocytes % (A) 5 %; Neutrophils % (A) 67 %; Platelet Count 309 k/uL (150-450); RBC 4.85 m/uL (3.80-5.40); RDW 13.3 % (11.5-15.5)
[2018-12-04 22:27] LABS: Hemoglobin A1C 5.5 % (4.0-6.0)
== END | disposition home or self-care (01) ==
LOC: LABWHC1 07:14
PROVIDERS: ATTEND Internal Medicine Geriatric Medicine
DX: Z00.00 Encounter for general adult medical examination without abnormal findings (principal); E55.9 Vitamin D deficiency, unspecified; K63.5 Polyp of colon; R73.9 Hyperglycemia, unspecified
CPT/HCPCS: 36415; 80061; 82306; 83036; 85025

== ENCOUNTER → 2018-12-23 | Outpatient (CLI) | payer MEDICAID ==
--- NOTE | 2018-12-24 11:16 | MM ---
Reason for exam: screening (asymptomatic). Last mammogram was performed 1 year and 6 months ago. History: Patient is postmenopausal. Took hormonal contraceptives for 6 months beginning at age 20. Physical Findings: A clinical breast exam by your physician is recommended on an annual basis and results should be correlated with mammographic findings. MG 3D Screening Mammo W/Cad Bilateral CC and MLO view(s) were taken. Prior study comparison: June 30, 2017, bilateral MG 3d screening mammo w/cad. July 27, 2015, bilateral MG 3d work up w/cad ANU. There are scattered fibroglandular densities. There is chronic nodularity in the right breast. No significant changes when compared with prior studies. ASSESSMENT: Benign, BI-RAD 2 RECOMMENDATION: Routine screening mammogram of both breasts in 1 year.
== END | disposition home or self-care (01) ==
LOC: RADMAMWWP 07:12
PROVIDERS: ATTEND Internal Medicine Geriatric Medicine
DX: Z12.31 Encounter for screening mammogram for malignant neoplasm of breast (principal)
CPT/HCPCS: 77063; 77067

== ENCOUNTER 2019-02-17 10:00 | Day surgery (SDC) | payer MEDICAID ==
[2019-02-16 08:42] VITALS: BMI 33.9
[~2019-02-17 10:00] MED LIST changes: -DEXAMETHASONE SOD PHOSPHATE 10 MG/ML 1 ML VIAL IV ONE; -HYDROmorphone 0.5 MG/0.5 ML SYRINGE IVP PRN; -MIDAZOLAM 2 MG/2 ML VIAL IV PRN; -ONDANSETRON 4 MG/2 ML VIAL IVP ONE; -ceFAZolin IN SWFI 2 GM/20 ML SYRINGE IVP ONE
[2019-02-17 10:28] VITALS: TEMP 98.4
[2019-02-17] MEDS ORDERED: LIDOCAINE 1% 20 ML VIAL (10MG/ML) FOR IV START INTRADERMA ONE (10:32)
[2019-02-17] MEDS ORDERED: PROPOFOL 10 MG/ML 20 ML VIAL IV ONE (11:29)
--- NOTE | 2019-02-17 11:46 | P.PCN ---
Date of Procedure: 02/17/19 Procedure(s) Performed: BRIEF HISTORY: Patient is a 63-year-old pleasant white female, scheduled for an elective colonoscopy as a part of surveillance of prior history of colon polyps. Last colonoscopy was 5 years ago. PROCEDURE PERFORMED: Colonoscopy with snare polypectomy. PREOPERATIVE DIAGNOSIS: History of colon polyps. IV sedation per Anesthesia. PROCEDURE: After informed consent was obtained, the patient, was brought into the endoscopy unit. IV sedation was administered by Anesthesia under continuous monitoring. Digital rectal examination was normal. Initially the Olympus CF-160 flexible video colonoscope was then inserted in the rectum, gradually advanced into the cecum without any difficulty. Careful examination was performed as the scope was gradually being withdrawn. Ileocecal valve and the appendiceal orifice were visualized and appeared normal. Prep was excellent. Mucosa of the cecum, ascending colon, appeared normal. In the transverse colon there was a 1 cm broad-based polyp that was removed by snare polypectomy. Rest of the transverse colon, descending colon, sigmoid colon, and rectum appeared normal. Scattered sigmoid diverticulosis seen. Retroflexion was performed in the rectum and no lesions were seen. The patient tolerated the procedure well. IMPRESSION: 1 cm broad-based transverse colon polyp status post polypectomy Scattered sigmoid diverticulosis RECOMMENDATIONS: Findings of this examination were discussed with the patient as well as a family. He was advised to follow with the biopsy results. If the biopsy shows an adenoma, she can have a repeat colonoscopy in 3-5 years.
[2019-02-17 12:11] VITALS: BP 140/78; PULSE 80; RESP 18
== END 2019-02-17 12:50 | disposition home or self-care (01) ==
LOC: ORWHC2ENDO 10:00
PROVIDERS: ATTEND Internal Medicine Gastroenterology
DX: Z12.11 Encounter for screening for malignant neoplasm of colon (principal); Z86.010 Personal history of colon polyps; K63.5 Polyp of colon; K57.30 Diverticulosis of large intestine without perforation or abscess without bleeding; K21.9 Gastro-esophageal reflux disease without esophagitis; E78.5 Hyperlipidemia, unspecified; Z79.1 Long term (current) use of non-steroidal anti-inflammatories (NSAID); Z79.899 Other long term (current) drug therapy; Z88.5 Allergy status to narcotic agent
CPT/HCPCS: 45385; 88305; J2704

== ENCOUNTER → 2019-06-16 | Outpatient (CLI) | payer MEDICAID ==
[2019-06-16 12:15] LABS: African American GFR (CKD) 78.9 (60.0-200.0); Albumin 4.4 g/dL (3.80-4.90); Albumin/Globulin Ratio 2.2 (1.60-3.17); Anion Gap 8.9 mmol/L (4.00-12.00); BUN/Creat Ratio 17.78 Ratio (12.00-20.00); Calcium 9.1 mg/dL (8.7-10.3); Carbon Dioxide 26.1 mmol/L (21.6-31.8); Chol/HDL Ratio 4.05; Potassium 4.2 mmol/L (3.5-5.5); Total Bilirubin 0.3 mg/dL (0.2-1.2); Total Protein 6.4 g/dL (6.2-8.2)
== END | disposition home or self-care (01) ==
LOC: LABWHC1 07:02
PROVIDERS: ATTEND Internal Medicine Geriatric Medicine
DX: E78.2 Mixed hyperlipidemia (principal)
CPT/HCPCS: 36415; 80053; 80061; 82550

== ENCOUNTER 2019-09-26 19:44 | Emergency (ER) | payer MEDICAID, OTHER ==
[2019-09-26 19:54] VITALS: TEMP 98.1
--- NOTE | 2019-09-26 20:10 | ED ---
General Adult HPI - General Chief complaint: Head Injury Stated complaint: Fall Time Seen by Provider: 09/26/19 19:57 Source: patient Mode of arrival: ambulatory Limitations: no limitations - History of Present Illness Initial comments: Patient presents to the ED for evaluation status post fall and head injury. 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 Patient states that she hit the back of her head on the ground. Patient denies LOC, but she states that she has had an occipital headache and dizziness since falling. Patient denies any other injury or site of pain, focal numbness/weakness/neuro deficit, visual changes, speech problems, neck/back/extremity pain, chest pain, dyspnea, palpitations, abdominal pain, nausea or vomiting, or any other symptoms or complaints. Patient denies anticoagulant medication use. - Related Data Home Medications Medication Instructions Recorded Confirmed Ergocalciferol (Vitamin D2) 50,000 unit PO Q14D 06/13/14 02/17/19 [Drisdol] Lovastatin [Mevacor] 40 mg PO MOTUWETHFR 06/13/14 02/17/19 Cetirizine HCl [Zyrtec] 10 mg PO DAILY PRN 07/09/17 02/17/19 Ibuprofen [Motrin] 400 mg PO Q6HR PRN 07/09/17 02/17/19 Omeprazole [PriLOSEC] 20 mg PO DAILY 03/07/18 02/17/19 Melatonin 5 mg PO HS PRN 02/16/19 02/17/19 Multivitamins, Thera [Multivitamin 1 tab PO DAILY 02/16/19 02/17/19 (formulary)] Allergies Allergy/AdvReac Type Severity Reaction Status Date / Time codeine AdvReac Nausea & Verified 09/26/19 19:53 Vomiting Review of Systems ROS Statement: Those systems with pertinent positive or pertinent negative responses have been documented in the HPI. ROS Other: All systems not noted in ROS Statement are negative. Past Medical History Past Medical History: Eye Disorder, GERD/Reflux, Hyperlipidemia, Hypertension Additional Past Medical History / Comment(s): hx anemia, hx colon polyps, hx hemorrhage suad eye d/t to retinal tears; HTN INTERMITTENT. History of Any Multi-Drug Resistant Organisms: None Reported Past Surgical History: Hysterectomy, Orthopedic Surgery Additional Past Surgical History / Comment(s): suad hands trigger finger x5 , D&C, Rectocele repair, hemorrhoidectomy. EGD, COLONOSCOPY Past Anesthesia/Blood Transfusion Reactions: Motion Sickness, Postoperative Nausea & Vomiting (PONV) Past Psychological History: No Psychological Hx Reported Smoking Status: Former smoker Past Alcohol Use History: Rare Past Drug Use History: None Reported - Past Family History Sister(s) Family Medical History: Cancer Father Family Medical History: Cancer General Exam Limitations: no limitations General appearance: alert, in no apparent distress Head exam: Present: other (Mild occipital scalp tenderness) Eye exam: Present: normal appearance, PERRL, EOMI ENT exam: Present: mucous membranes moist, TM's normal bilaterally Neck exam: Present: normal inspection, full ROM, other (Trachea is in midline). Absent: tenderness Respiratory exam: Present: normal lung sounds bilaterally. Absent: respiratory distress, wheezes, rales, rhonchi Cardiovascular Exam: Present: regular rate, normal rhythm, normal heart sounds, other (Normal radial pulses bilaterally) GI/Abdominal exam: Present: soft. Absent: distended, tenderness Extremities exam: Present: full ROM. Absent: tenderness Back exam: Present: full ROM. Absent: tenderness Neurological exam: Present: alert, oriented X3, CN II-XII intact. Absent: motor sensory deficit Psychiatric exam: Present: normal affect, normal mood Skin exam: Present: warm, dry, intact, normal color Course Vital Signs 09/26/19 19:50 Temperature 98.1 F Pulse Rate 98 Respiratory 16 Rate Blood Pressure 151/95 O2 Sat by Pulse 97 Oximetry Medical Decision Making - Medical Decision Making Patient's head CT is negative. Patient denies development of any new pain or symptoms while in the ED. Patient was counseled about head injuries, and she feels going home with her significant other at this time. She was clearly explained return and follow-up instruction. She feels comfortable with this plan. - Radiology Data Radiology results: report reviewed (Head CT is negative) Disposition Clinical Impression: Head injury, Fall Disposition: HOME SELF-CARE Condition: Stable Instructions (If sedation given, give patient instructions): Head Injury (ED) Additional Instructions: Return to the ER immediately should you develop new or worsening pain, shortness of breath, vomiting, increased dizziness, fainting, or new or worsening symptom s. Follow up closely with your primary care provider. Is patient prescribed a controlled substance at d/c from ED?: No Referrals: Sami Soriano MD [Primary Care Provider] - 1-2 days Time of Disposition: 20:41
--- NOTE | 2019-09-26 20:28 | CT ---
EXAMINATION TYPE: CT brain wo con DATE OF EXAM: 09/26/2019 COMPARISON: 10/20/2018 HISTORY: Fall with posterior head injury CT DLP: 1099.4 mGycm Automated exposure control for dose reduction was used. Ventricles and sulci appear normal. There is no mass effect nor midline shift. There is no sign of in tracranial hemorrhage. Calvarium is intact. IMPRESSION: Normal head CT scan.
[2019-09-26 20:46] VITALS: BP 144/79; PULSE 81; RESP 18
== END 2019-09-26 20:48 | disposition home or self-care (01) ==
LOC: EC 19:44
DX: S09.90XA Unspecified injury of head, initial encounter (principal); K21.9 Gastro-esophageal reflux disease without esophagitis; E78.5 Hyperlipidemia, unspecified; Z87.891 Personal history of nicotine dependence; Z79.899 Other long term (current) drug therapy; Z88.5 Allergy status to narcotic agent; W00.0XXA Fall on same level due to ice and snow, initial encounter; Y93.01 Activity, walking, marching and hiking; Y92.481 Parking lot as the place of occurrence of the external cause
CPT/HCPCS: 70450; 99283

== ENCOUNTER → 2019-09-28 | Outpatient (CLI) | payer OTHER ==
--- NOTE | 2019-09-28 14:51 | CT ---
EXAMINATION TYPE: CT cervical spine wo con DATE OF EXAM: 09/28/2019 COMPARISON: HISTORY: Slip and fall x2 days ago, neck pain. CT DLP: 602.9 mGycm Automated exposure control for dose reduction was used. TECHNIQUE: CT scan of the cervical spine is obtained without contrast, axial images are obtained, sagittal and c oronal reformatted images are also reviewed. FINDINGS: Cervical vertebral bodies are intact. Lung apices are unremarkable. There is multilevel spondylosis. Loss of disc height is present at C5-6. No evident spinal stenosis or significant foraminal encroachm ent. Hypodensity present within the left lobe of thyroid is noted incidentally measuring approximately 1 c m. Cervical spine is visualized in its entirety from C1 through upper thoracic levels, demonstrates sati sfactory alignment without evidence of acute fracture or dislocation. Prevertebral soft tissue appea rs within normal limits. The C1-C2 articulation is within normal limits on the coronal images. IMPRESSION: There is no acute fracture or dislocation evident in the cervical spine. Degenerative disc disease an d additional findings above.
== END | disposition home or self-care (01) ==
LOC: RADCTMAIN 14:27
PROVIDERS: ATTEND Emergency Medicine
DX: M50.30 Other cervical disc degeneration, unspecified cervical region (principal)
CPT/HCPCS: 72125

== ENCOUNTER → 2019-10-04 | Outpatient (CLI) | payer MEDICAID ==
--- NOTE | 2019-10-04 16:46 | XR ---
Lumbar spine HISTORY: Low back pain 3 views lumbar spine Lumbar vertebral bodies show preserved height and alignment. Bone mineralization is reduced. Loss of disc height is greatest at L5-S1 and L4-5. Sclerosis present in the posterior elements of the lower l umbar spine. Vacuum phenomenon suspected L4-5 and L5-S1 intervertebral disc spaces. There is a mild s jazmyne curvature. IMPRESSION: Degenerative disc disease and facet arthropathy. Osteopenia.
== END ==
LOC: RAD 14:43
PROVIDERS: ATTEND Internal Medicine Geriatric Medicine
DX: M51.36 Other intervertebral disc degeneration, lumbar region (principal); M46.96 Unspecified inflammatory spondylopathy, lumbar region; M85.88 Other specified disorders of bone density and structure, other site
CPT/HCPCS: 72100

== ENCOUNTER → 2019-10-14 | Outpatient (CLI) | payer MEDICAID ==
--- NOTE | 2019-10-15 08:13 | US ---
EXAMINATION TYPE: US thyroid st tissue head/neck DATE OF EXAM: 10/14/2019 COMPARISON: CT of the cervical spine dated 09/28/2019 CLINICAL HISTORY: E04.1 thyroid nodule. Nodule seen on CT GLAND SIZE: Right Lobe: 4.5 x 1.8 x 1.8cm Overall Parenchyma: homogenous Left Lobe: 5.2 x 1.4 x 1.6 cm Overall Parenchyma: homogeneous Isthmus Thickness: 0.3 cm NODULES RIGHT: # of nodules measured on right: 0 LEFT: # of nodules measured on left: 1 1. 0.8 X 0.7 x 0.4 cm hypoechoic solid nodule at the mid pole with well-defined margins. This nodu le is wider than tall and shows no intranodular vascularity. 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 IMPRESSION: Left thyroid nodule is subcentimeter and too small for fine-needle aspiration at this time. Follow-up thyroid ultrasound could be performed in one year for surveillance. Thyroid gland is mildly enlarged .
== END | disposition home or self-care (01) ==
LOC: RADUSMAIN 17:31
PROVIDERS: ATTEND Internal Medicine Geriatric Medicine
DX: E04.1 Nontoxic single thyroid nodule (principal)
CPT/HCPCS: 76536

== ENCOUNTER → 2020-03-31 | Outpatient (CLI) | payer MEDICAID ==
--- NOTE | 2020-04-03 09:37 | MM ---
Reason for exam: screening (asymptomatic). Last mammogram was performed 1 year and 3 months ago. History: Patient is postmenopausal. Took hormonal contraceptives for 6 months beginning at age 20. Physical Findings: A clinical breast exam by your physician is recommended on an annual basis and results should be correlated with mammographic findings. MG 3D Screening Mammo W/Cad Bilateral CC and MLO view(s) were taken. Prior study comparison: December 23, 2018, bilateral MG 3d screening mammo w/cad. June 30, 2017, bilateral MG 3d screening mammo w/cad. There are scattered fibroglandular densities. There is chronic nodularity in the right breast. Central right breast 6mm nodule now better seen but was present previously on 3D images and benign. No significant changes when compared with prior studies. ASSESSMENT: Benign, BI-RAD 2 RECOMMENDATION: Routine screening mammogram of both breasts in 1 year.
== END | disposition home or self-care (01) ==
LOC: RADMAMWWP 15:02
PROVIDERS: ATTEND Internal Medicine Geriatric Medicine
DX: Z12.31 Encounter for screening mammogram for malignant neoplasm of breast (principal)
CPT/HCPCS: 77063; 77067

== ENCOUNTER 2020-06-05 04:12 | Emergency (ER) | payer MEDICAID ==
[2020-06-05 04:19] VITALS: BP 148/89; PULSE 91; RESP 18; TEMP 98.6
--- NOTE | 2020-06-05 04:30 | ED ---
ENT HPI - General Chief complaint: ENT Stated complaint: ENT Time Seen by Provider: 06/05/20 04:22 Source: patient Mode of arrival: ambulatory - History of Present Illness Initial comments: Afia is a pleasant 64-year-old female who presents to ER today for evaluation of left ear pain and drainage. Patient reports that she does not get frequent infections but has noticed that this ear makes a lot of wax and is frequently draining. She states that she has chronic pain in this ear after a dental extraction 2-3 years ago. She does not follow with ENT. She states that over the past 2 days she's noticed worsening pain and drainage from the ear and tonight it prevented her from sleeping which prompted her visit to the ER. - Related Data Home Medications Medication Instructions Recorded Confirmed Ergocalciferol (Vitamin D2) 50,000 unit PO Q14D 06/13/14 02/17/19 [Drisdol] Lovastatin [Mevacor] 40 mg PO MOTUWETHFR 06/13/14 02/17/19 Cetirizine HCl [Zyrtec] 10 mg PO DAILY PRN 07/09/17 02/17/19 Ibuprofen [Motrin] 400 mg PO Q6HR PRN 07/09/17 02/17/19 Omeprazole [PriLOSEC] 20 mg PO DAILY 03/07/18 02/17/19 Melatonin 5 mg PO HS PRN 02/16/19 02/17/19 Multivitamins, Thera [Multivitamin 1 tab PO DAILY 02/16/19 02/17/19 (formulary)] Allergies Allergy/AdvReac Type Severity Reaction Status Date / Time codeine AdvReac Nausea & Verified 06/05/20 04:19 Vomiting Review of Systems ROS Statement: Those systems with pertinent positive or pertinent negative responses have been documented in the HPI. ROS Other: All systems not noted in ROS Statement are negative. Past Medical History Past Medical History: Eye Disorder, GERD/Reflux, Hyperlipidemia, Hypertension Additional Past Medical History / Comment(s): hx anemia, hx colon polyps, hx hemorrhage suad eye d/t to retinal tears; HTN INTERMITTENT. History of Any Multi-Drug Resistant Organisms: None Reported Past Surgical History: Hysterectomy, Orthopedic Surgery Additional Past Surgical History / Comment(s): suad hands trigger finger x5 , D&C, Rectocele repair, hemorrhoidectomy. EGD, COLONOSCOPY Past Anesthesia/Blood Transfusion Reactions: Motion Sickness, Postoperative Nausea & Vomiting (PONV) Past Psychological History: No Psychological Hx Reported Smoking Status: Never smoker Past Alcohol Use History: Rare Past Drug Use History: None Reported - Past Family History Sister(s) Family Medical History: Cancer Father Family Medical History: Cancer General Exam - General Exam Comments Initial Comments: Physical Exam GENERAL: Patient is well-developed and well-nourished. Patient is nontoxic and well-hydrated and is in no distress. HENT: Normocephalic, Atraumatic. Left ear canal is edematous with clear drainage noted, TMs normal Right canal and TM normal EYES: PERRL, EOMI PULMONARY: Unlabored respirations. CARDIOVASCULAR: RRR Warm and well perfused extremities ABDOMEN: Non-distended SKIN: No rashes or bruising : Deferred NEUROLOGIC: Alert and oriented Normal speech Normal gait MUSCULOSKELETAL: Moving all extremities with no apparent injury PSYCHIATRIC: No SI/HI Course Vital Signs 06/05/20 04:16 Temperature 98.6 F Pulse Rate 91 Respiratory 18 Rate Blood Pressure 148/89 O2 Sat by Pulse 98 Oximetry Medical Decision Making - Medical Decision Making Patient was seen and evaluated history is obtained from the patient, physical exam consistent with a left-sided otitis externa Patient was treated with Polytrim drops, first dose given in the ER Return parameters were discussed patient was discharged home in stable condition Disposition Clinical Impression: Otitis externa Disposition: HOME SELF-CARE Condition: Stable Additional Instructions: Apply 4 drops into left ear 4 times a day Follow up with ENT Dr Galan or your primary care doctor Return to the ER for any worsening or development of new or concerning symptoms Is patient prescribed a controlled substance at d/c from ED?: No Referrals: Sami Soriano MD [Primary Care Provider] - 1-2 days Greg Galan MD [STAFF PHYSICIAN] - 1-2 days
[2020-06-05] MEDS ORDERED: POLYMYXIN B-TRIMETHOPRIM SULF (10,000-1) OPHTH DROPS 10 ML BTL LEFT EYE SCH (06:00)
== END 2020-06-05 04:51 | disposition home or self-care (01) ==
LOC: EC 04:12
DX: H60.92 Unspecified otitis externa, left ear (principal); E78.5 Hyperlipidemia, unspecified; K21.9 Gastro-esophageal reflux disease without esophagitis; Z79.899 Other long term (current) drug therapy; Z88.5 Allergy status to narcotic agent; Z98.818 Other dental procedure status
CPT/HCPCS: 99282

== ENCOUNTER 2020-06-07 20:31 | Emergency (ER) | payer MEDICAID ==
[2020-06-07 20:43] VITALS: BP 122/82; PULSE 97; RESP 18; TEMP 98.1
[2020-06-07] MEDS ORDERED: LIDOCAINE 1% INJ 10MG/ML (20 ML MDV) SQ ONE (21:31)
--- NOTE | 2020-06-07 21:36 | ED ---
Extremity Problem HPI - General Chief complaint: Extremity Problem,Nontraumatic Stated complaint: R Foot Pain Time Seen by Provider: 06/07/20 20:59 Source: patient Mode of arrival: ambulatory Limitations: no limitations - History of Present Illness Initial comments: Patient is a 64-year-old female presenting to the emergency Department with complaints of pain on the outside of her right foot. Patient states she's been dealing with right-sided plantar fasciitis for a few weeks now and does have a new hard insert that she wears her shoes. Patient states today after working most of the day she noticed some pain and outside of her right foot. Patient states when she walks barefoot the pain is worse, he walks in her inserts, her pain is better. She denies any further falls, trips or injuries. She denies any previous surgeries. She has no further complaints. - Related Data Home Medications Medication Instructions Recorded Confirmed Ergocalciferol (Vitamin D2) 50,000 unit PO Q14D 06/13/14 02/17/19 [Drisdol] Lovastatin [Mevacor] 40 mg PO MOTUWETHFR 06/13/14 02/17/19 Cetirizine HCl [Zyrtec] 10 mg PO DAILY PRN 07/09/17 02/17/19 Ibuprofen [Motrin] 400 mg PO Q6HR PRN 07/09/17 02/17/19 Omeprazole [PriLOSEC] 20 mg PO DAILY 03/07/18 02/17/19 Melatonin 5 mg PO HS PRN 02/16/19 02/17/19 Multivitamins, Thera [Multivitamin 1 tab PO DAILY 02/16/19 02/17/19 (formulary)] Allergies Allergy/AdvReac Type Severity Reaction Status Date / Time codeine AdvReac Nausea & Verified 06/07/20 20:42 Vomiting Review of Systems ROS Statement: Those systems with pertinent positive or pertinent negative responses have been documented in the HPI. ROS Other: All systems not noted in ROS Statement are negative. Past Medical History Past Medical History: Eye Disorder, GERD/Reflux, Hyperlipidemia, Hypertension Additional Past Medical History / Comment(s): hx anemia, hx colon polyps, hx hemorrhage suad eye d/t to retinal tears; HTN INTERMITTENT. History of Any Multi-Drug Resistant Organisms: None Reported Past Surgical History: Hysterectomy, Orthopedic Surgery Additional Past Surgical History / Comment(s): suad hands trigger finger x5 , D&C, Rectocele repair, hemorrhoidectomy. EGD, COLONOSCOPY Past Anesthesia/Blood Transfusion Reactions: Motion Sickness, Postoperative Nausea & Vomiting (PONV) Past Psychological History: No Psychological Hx Reported Smoking Status: Never smoker Past Alcohol Use History: Rare Past Drug Use History: None Reported - Past Family History Sister(s) Family Medical History: Cancer Father Family Medical History: Cancer General Exam - General Exam Comments Initial Comments: GENERAL: Patient is well-developed and well-nourished. Patient is nontoxic and in no acute distress. HEAD: Atraumatic, normocephalic. EYES: Pupils equal round and reactive to light, extraocular movements intact, sclera anicteric, conjunctiva are normal. Eyelids were unremarkable. ENT: Nares patent, oropharynx clear without exudates. Moist mucous membranes. NECK: Normal range of motion, supple without lymphadenopathy or JVD. LUNGS: Unlabored respirations. Breath sounds clear to auscultation bilaterally and equal. No wheezes rales or rhonchi. HEART: Regular rate and rhythm without murmurs, rubs or gallops. ABDOMEN: Soft, nontender, normoactive bowel sounds. No guarding, no rebound. No masses appreciated. : Deferred MUSCULOSKELETAL: Mild pain with palpation of the right lateral foot. Is no swelling, no erythema. She is her vascular intact. Normal extremities with adequate strength and normal range of motion, no pitting or edema. No clubbing or cyanosis. NEUROLOGICAL: Patient is alert and oriented x 3. Normal speech, normal gait. PSYCH: Normal mood, normal affect. SKIN: Warm, Dry, normal turgor, no rashes or lesions noted. Limitations: no limitations Course Vital Signs 06/07/20 20:39 Temperature 98.1 F Pulse Rate 97 Respiratory 18 Rate Blood Pressure 122/82 O2 Sat by Pulse 98 Oximetry Medical Decision Making - Medical Decision Making Patient is a 64-year-old female here for right foot pain. She's been dealing with plantar fasciitis. She denies any further falls or injuries. Patient does have a normal gait during my exam. I discussed with patient that her symptoms are most likely related to her new hard insoles that she just received one week ago for her plantar fasciitis. I did recommend gentle stretching, massage to the area. She needs to also follow up with her PCP, recommend physical therapy. She states she does have a prescription for PT but has not gone yet. She is stable for discharge. She is agreement with this plan of care. Disposition Clinical Impression: Right foot pain, Plantar fasciitis, right Disposition: HOME SELF-CARE Condition: Stable Instructions (If sedation given, give patient instructions): Plantar Fasciitis (ED) Additional Instructions: Please return to the Emergency Department if symptoms worsen or any other concerns. Recommend heat, gentle stretching, rolling out the foot prior to first up in the morning. Follow up with PCP, recommend physical therapy. Is patient prescribed a controlled substance at d/c from ED?: No Referrals: Sami Soriano MD [Primary Care Provider] - 1-2 days
== END 2020-06-07 22:04 | disposition home or self-care (01) ==
LOC: EC 20:31
DX: M72.2 Plantar fascial fibromatosis (principal); K21.9 Gastro-esophageal reflux disease without esophagitis; E78.5 Hyperlipidemia, unspecified; I10 Essential (primary) hypertension; Z79.899 Other long term (current) drug therapy; Z88.0 Allergy status to penicillin; Z98.890 Other specified postprocedural states
CPT/HCPCS: 99283

== ENCOUNTER → 2021-03-06 | Outpatient (CLI) | payer MEDICAID ==
[2021-03-06 11:25] LABS: Basophils # (A) 0.12 X 10*3/uL (0.00-0.10); Basophils % (A) 1.4 %; Eosinophils # (A) 0.34 X 10*3/uL (0.04-0.35); Eosinophils % (A) 3.9 %; HCT 41.8 % (37.2-46.3); HGB 14.2 g/dL (12.0-15.0); Lymphocytes # (A) 2.17 X 10*3/uL (0.90-5.00); Lymphocytes % (A) 25.1 %; MCH 30.2 pg (27.0-32.0); MCV 88.9 fL (80.0-97.0); Mean Platelet Volume 10.8 fL (9.5-12.2); Monocytes # (A) 0.63 X 10*3/uL (0.20-1.00); Monocytes % (A) 7.3 %; Neutrophils # (A) 5.36 X 10*3/uL (1.80-7.70); Platelet Count 349 X 10*3/uL (140-440); RDW 12.9 % (11.5-14.5); WBC 8.65 X 10*3/uL (4.50-10.00)
[2021-03-06 16:01] LABS: African American GFR (CKD) 89.7 (60.0-200.0); Albumin 4.4 g/dL (3.80-4.90); Albumin/Globulin Ratio 1.91 (1.60-3.17); Anion Gap 8.7 mmol/L (4.00-12.00); BUN/Creat Ratio 23.75 Ratio (12.00-20.00); Calcium 9.4 mg/dL (8.7-10.3); Carbon Dioxide 24.3 mmol/L (21.6-31.8); Chol/HDL Ratio 4.74; Globulin 2.3 g/dL (1.6-3.3); LDL Cholesterol,Calculated 122.8 mg/dL (0.0-131.0); Non-African American GFR(CKD) 77.4 (60.0-200.0); Potassium 4.6 mmol/L (3.5-5.5); Total Bilirubin 0.5 mg/dL (0.3-1.2); Total Protein 6.7 g/dL (6.2-8.2); VLDL Calculation 34.2 mg/dL (5.00-40.00)
[2021-03-06 16:10] LABS: T4, Free (Free Thyroxine) 0.9 ng/dL (0.80-1.80)
[2021-03-06 17:00] LABS: Hemoglobin A1C 5.3 % (4.0-6.0)
== END | disposition home or self-care (01) ==
LOC: LABWHC1 07:01
PROVIDERS: ATTEND Nurse Practitioner Gerontology
DX: Z00.00 Encounter for general adult medical examination without abnormal findings (principal); E78.2 Mixed hyperlipidemia; E04.1 Nontoxic single thyroid nodule; R73.9 Hyperglycemia, unspecified
CPT/HCPCS: 36415; 80053; 80061; 83036; 84439; 84443; 85025

== ENCOUNTER → 2021-03-20 | Outpatient (CLI) | payer MEDICAID ==
--- NOTE | 2021-03-20 16:21 | US ---
EXAMINATION TYPE: US thyroid st tissue head/neck DATE OF EXAM: 03/20/2021 COMPARISON: US CLINICAL HISTORY: E04.1 THYROID NODULE. F/U nodule GLAND SIZE: Right Lobe: 4.3 x 1.5 x 1.8 cm Overall Parenchyma: heterogenous Left Lobe: 4.2 x 1.3 x 2.0 cm Overall Parenchyma: heterogeneous Isthmus Thickness: 0.3 cm NODULES RIGHT: # of nodules measured on right: 1 1. 0.6 X 0.6 x 0.6 cm, mid, solid or almost completely solid, isoechoic nodule, which is wider than tall, with ill-defined margins, without echogenic foci. This is a TI-RADS 3 nodule. Prior size: Not visualized on prior LEFT: # of nodules measured on left: 2 1. 0.9 X 0.9 x 0.9 cm, mid, solid or almost completely solid, hypoechoic nodule, which is wider stanislaw n tall, with ill-defined margins, with punctate echogenic foci. Prior size: not visualized on prior 2. 0.6 X 0.5 x 0.8 cm, upper, solid or almost completely solid, hypoechoic nodule, which is wider than tall, with smooth margins, without echogenic foci. Prior size: 0.7 x 0.4 x 0.8 cm These are TI RADS 4 nodules. Continued sonographic follow-up is recommended. Bilateral neck scanned, no evidence of lymphadenopathy. Two new sub-centimeter nodules, one on right and one on left/ Stable sub-centimeter nodule left lobe IMPRESSION: Bilateral thyroid nodules, as described above. There are bilateral new nodules with a stable nodule o n the left. The left thyroid nodules are TI RADS 4 nodules. The right thyroid nodule is a TI-RADS 3 n odule. Continued sonographic follow-up is recommended. 2017 ACR TI-RADS LEVEL: 4 *Highest TI-RADS level nodule reported
== END | disposition home or self-care (01) ==
LOC: RADUSWWP 13:24
PROVIDERS: ATTEND Internal Medicine Geriatric Medicine
DX: E04.2 Nontoxic multinodular goiter (principal)
CPT/HCPCS: 76536

== ENCOUNTER 2021-04-10 12:49 | Emergency (ER) | payer MEDICAID, OTHER ==
[2021-04-10 12:57] VITALS: BP 127/74; PULSE 82; RESP 20; TEMP 98
--- NOTE | 2021-04-10 13:08 | ED ---
Head Injury HPI - General Chief complaint: Head Injury Stated complaint: [facility] - head injury Time Seen by Provider: 04/10/21 12:57 Source: patient, RN notes reviewed Mode of arrival: ambulatory Limitations: no limitations - History of Present Illness Initial comments: This a 65-year-old female presents emergency Department with chief complaint of head injury. 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 Patient states his happened 3 hours ago. She states she has a very minimal headache states that she just feels slightly off. She states is not worrisome denies any blurred vision no focal weakness or difficulty ambulating no neck pain denies any blood thinners. - Related Data Home Medications Medication Instructions Recorded Confirmed Ergocalciferol (Vitamin D2) 50,000 unit PO Q14D 06/13/14 02/17/19 [Drisdol] Lovastatin [Mevacor] 40 mg PO MOTUWETHFR 06/13/14 02/17/19 Cetirizine HCl [Zyrtec] 10 mg PO DAILY PRN 07/09/17 02/17/19 Ibuprofen [Motrin] 400 mg PO Q6HR PRN 07/09/17 02/17/19 Omeprazole [PriLOSEC] 20 mg PO DAILY 03/07/18 02/17/19 Melatonin 5 mg PO HS PRN 02/16/19 02/17/19 Multivitamins, Thera [Multivitamin 1 tab PO DAILY 02/16/19 02/17/19 (formulary)] Allergies/Adverse reactions: Allergies Allergy/AdvReac Type Severity Reaction Status Date / Time codeine AdvReac Nausea & Verified 04/10/21 12:54 Vomiting Review of Systems ROS Statement: Those systems with pertinent positive or pertinent negative responses have been documented in the HPI. ROS Other: All systems not noted in ROS Statement are negative. Past Medical History Past Medical History: Eye Disorder, GERD/Reflux, Hyperlipidemia, Hypertension Additional Past Medical History / Comment(s): hx anemia, hx colon polyps, hx hemorrhage suad eye d/t to retinal tears; HTN INTERMITTENT. History of Any Multi-Drug Resistant Organisms: None Reported Past Surgical History: Hysterectomy, Orthopedic Surgery Additional Past Surgical History / Comment(s): suad hands trigger finger x5 , D&C, Rectocele repair, hemorrhoidectomy. EGD, COLONOSCOPY Past Anesthesia/Blood Transfusion Reactions: Motion Sickness, Postoperative Nausea & Vomiting (PONV) Past Psychological History: No Psychological Hx Reported Smoking Status: Never smoker Past Alcohol Use History: Rare Past Drug Use History: None Reported - Past Family History Sister(s) Family Medical History: Cancer Father Family Medical History: Cancer General Exam Limitations: no limitations General appearance: alert, in no apparent distress Head exam: Present: atraumatic, normocephalic. Absent: normal inspection (There is a small scalp hematoma, abrasion noted) Eye exam: Present: normal appearance, PERRL, EOMI. Absent: scleral icterus, conjunctival injection, periorbital swelling ENT exam: Present: normal exam, normal oropharynx, mucous membranes moist Neck exam: Present: normal inspection, full ROM. Absent: tenderness, meningismus, lymphadenopathy Respiratory exam: Present: normal lung sounds bilaterally. Absent: respiratory distress, wheezes, rales, rhonchi, stridor Cardiovascular Exam: Present: regular rate, normal rhythm, normal heart sounds. Absent: systolic murmur, diastolic murmur, rubs, gallop, clicks Neurological exam: Present: alert, oriented X3, CN II-XII intact, reflexes normal, other (Finger to nose intact bilaterally without over shooting). Absent: motor sensory deficit Course Vital Signs 04/10/21 12:54 Temperature 98.0 F Pulse Rate 82 Respiratory 20 Rate Blood Pressure 127/74 O2 Sat by Pulse 97 Oximetry Medical Decision Making - Medical Decision Making 65-year-old presented for head injury. Patient has a small scalp hematoma and abrasion. Patient has no neurological deficits. Straight minimal symptoms. We discussed possibility CT she is comfortable discharged return for any worsening changes symptoms. Disposition Clinical Impression: Hematoma of scalp, Scalp abrasion Disposition: HOME SELF-CARE Condition: Stable Instructions (If sedation given, give patient instructions): Head Injury (ED) Additional Instructions: Please return to the Emergency Department if symptoms worsen or any other concerns. Is patient prescribed a controlled substance at d/c from ED?: No Referrals: Sami Soriano MD [Primary Care Provider] - 1-2 days Time of Disposition: 13:08
== END 2021-04-10 13:17 | disposition home or self-care (01) ==
LOC: EC 12:49
DX: S00.03XA Contusion of scalp, initial encounter (principal); I10 Essential (primary) hypertension; E78.5 Hyperlipidemia, unspecified; K21.9 Gastro-esophageal reflux disease without esophagitis; Z79.899 Other long term (current) drug therapy; W22.8XXA Striking against or struck by other objects, initial encounter
CPT/HCPCS: 99283

== ENCOUNTER → 2021-05-03 | Outpatient (CLI) | payer MEDICAID ==
--- NOTE | 2021-05-07 10:31 | MM ---
Reason for exam: screening (asymptomatic). Last mammogram was performed 1 year and 1 month ago. History: Patient is postmenopausal. Took hormonal contraceptives for 6 months beginning at age 20. Physical Findings: A clinical breast exam by your physician is recommended on an annual basis and results should be correlated with mammographic findings. MG 3D Screening Mammo W/Cad Bilateral CC and MLO view(s) were taken. Prior study comparison: March 31, 2020, bilateral MG 3d screening mammo w/cad. December 23, 2018, bilateral MG 3d screening mammo w/cad. June 30, 2017, bilateral MG 3d screening mammo w/cad. There are scattered fibroglandular densities. There is chronic nodularity in the right breast. No significant changes when compared with prior studies. ASSESSMENT: Negative, BI-RAD 1 RECOMMENDATION: Routine screening mammogram of both breasts in 1 year.
== END | disposition home or self-care (01) ==
LOC: RADMAMWWP 06:57
PROVIDERS: ATTEND Internal Medicine Geriatric Medicine
DX: Z12.31 Encounter for screening mammogram for malignant neoplasm of breast (principal); Z78.0 Asymptomatic menopausal state
CPT/HCPCS: 77063; 77067

== ENCOUNTER → 2021-08-24 | Outpatient (CLI) | payer MEDICAID, MEDICARE ==
[2021-08-24 12:24] LABS: ALT 23 U/L (8-44); AST 17 U/L (13-35); African American GFR (CKD) 77.2 (60.0-200.0); Albumin 4.4 g/dL (3.8-4.9); Alkaline Phosphatase 99 U/L (41-126); BUN/Creat Ratio 16.89 Ratio (12.00-20.00); Blood Urea Nitrogen 15.2 mg/dL (9.0-27.0); Calcium 9.9 mg/dL (8.7-10.3); Carbon Dioxide 25.3 mmol/L (20.0-27.5); Chloride 104 mmol/L (96-109); Chol/HDL Ratio 3.87 Ratio; Globulin 2.2 g/dL (1.6-3.3); Glucose 113 mg/dL (70-110); LDL Cholesterol,Calculated 103.5 mg/dL (0.0-131.0); Non-African American GFR(CKD) 66.6 (60.0-200.0); Potassium 4.5 mmol/L (3.5-5.5); Sodium 139 mmol/L (135-145); Total Protein 6.6 g/dL (6.2-8.2)
== END | disposition home or self-care (01) ==
LOC: LABWHC1 08-23 12:19
PROVIDERS: ATTEND Internal Medicine Geriatric Medicine
DX: Z00.00 Encounter for general adult medical examination without abnormal findings (principal); R73.9 Hyperglycemia, unspecified; E78.2 Mixed hyperlipidemia; E04.1 Nontoxic single thyroid nodule
CPT/HCPCS: 36415; 80053; 80061; 83036; 84439; 84443

== ENCOUNTER → 2022-09-24 | Outpatient (CLI) | payer MEDICARE ==
--- NOTE | 2022-09-24 10:10 | BD ---
EXAMINATION TYPE: Axial Bone Density DATE OF EXAM: 09/24/2022 COMPARISON: 05/02/2014 CLINICAL HISTORY: 67 years old Female. ICD-10 CODE: M81.0 OSTEOPOROSIS Height: 65 Weight: 225 FRAX RISK QUESTIONS: Alcohol (3 or more units per day): NO Family History (Parent hip fracture): NO History of Fracture in Adulthood: NO Secondary Osteoporosis: NO Rheumatoid Arthritis: NO Current Tobacco Use: NO RISK FACTORS HISTORY OF: Family History of Osteoporosis: NO Active: YES Diet low in dairy products/other sources of calcium: NO Postmenopausal woman: YES 45 Lost more than 2 inches in height since high school: NO Frequent falls: NO Poor Health: NO Hyperparathyroidism: NO Adrenal Insufficiency: NO MEDICATIONS: Additional Medications: YES HBP , REFLUX , VIT D , MULTI VIT , CHOLESTEROL EXAM MEASUREMENTS: Bone mineral densitometry was performed using the Everlater System. Bone mineral density as measured about the Lumbar spine is: ----- L1-L4(G/cm2): 1.210 T Score Values are as follows: ----- L1: -0.1 ----- L2: -0.5 ----- L3: 0.5 ----- L4: 0.7 ----- L1-L4: 0.2 Bone mineral density has: Increased 1.1% since study of: 05/02/2014 Bone mineral density about the R hip (g/cm2): 1.153 Bone mineral density about the L hip (g/cm2): 1.141 T Score values are as follows: -----R Neck: 0.8 -----L Neck: -0.1 -----R Total: 1.1 -----L Total: 1.1 Bone mineral density has: Decreased -2.7% since study of: 05-02-2014 FRAX%s: The graph provided illustrates a 6.5% chance for a major osteoporotic fx and a 0.3% chance fo r the hips probability for fx in 10 years time. IMPRESSION: Normal (Values between +1 and -1 indicate normal bone mass). Consider repeating this study in 5 year s or sooner if there is some new clinical indication. NOTE: T-SCORE=SD OF THE YOUNG ADULT MEAN.
--- NOTE | 2022-09-25 07:38 | MM ---
Reason for Exam: Screening (asymptomatic). Last mammogram was performed 1 year(s) and 5 month(s) ago. Patient History: Menarche at age 10. First Full-Term at age 23. Hysterectomy at age 42. Postmenopausal. Patient has history of breast feeding. Unspecified Hormone for 6 months from age 20 until age 21. Risk Values: Jessenia 5 year model risk: 1.7%. NCI Lifetime model risk: 5.7%. Prior Study Comparison: 07/19/2015 Bilateral Screening Mammogram, [facility]. 07/27/2015 Bilateral Diagnostic Mammogram, [facility]. 06/30/2017 Bilateral Screening Mammogram, [facility] 12/23/2018 Bilateral Screening Mammogram, [facility]. 03/31/2020 Bilateral Screening Mammogram, [facility]. 05/03/2021 Bilateral Screening Mammogram, [facility]. Tissue Density: There are scattered fibroglandular densities. Findings: Analyzed By CAD. There is no suspicious group of microcalcifications or new suspicious mass in either breast. Overall Assessment: Negative, BI-RAD 1 Management: Screening Mammogram of both breasts in 1 year. A clinical breast exam by your physician is recommended on an annual basis and results should be correlated with mammographic findings. [facility] will attempt to contact patient to return for supplemental views and ultrasound if indicated. Electronically signed and approved by: Elian Craven DO
== END | disposition home or self-care (01) ==
LOC: RADMAMWWP 07:51
PROVIDERS: ATTEND Internal Medicine Geriatric Medicine
DX: Z12.31 Encounter for screening mammogram for malignant neoplasm of breast (principal); M81.0 Age-related osteoporosis without current pathological fracture; Z78.0 Asymptomatic menopausal state
CPT/HCPCS: 77063; 77067; 77080

== ENCOUNTER 2023-07-22 13:24 | Emergency (ER) | payer MEDICARE ==
[2023-07-22] MEDS ORDERED: LIDOCAINE 1% INJ 10MG/ML (20 ML MDV) SQ ONE (14:04)
[2023-07-22] MEDS ORDERED: DIPH,PERTUS(ACELL)TETVAC-LF 0.5 ML VIAL IM ONE (14:04)
--- NOTE | 2023-07-22 14:04 | ED ---
Upper Extremity HPI - General Chief Complaint: Extremity Injury, Upper Stated Complaint: L Hand Injury Time Seen by Provider: 07/22/23 13:52 Source: patient, RN notes reviewed Mode of arrival: ambulatory Limitations: no limitations - History of Present Illness Initial Comments: This is a 67-year-old female who presents to the emergency department for an injury to her left middle finger. States that she was moving brick pavers earlier today, and when she went to set it down she did not get her finger out from underneath it in time. She acquired injury to the tip of her left middle finger. Pain has started to improve. Unsure when her last tetanus vaccine was. MD Complaint: Injury to:: left, finger - Related Data Home Medications Medication Instructions Recorded Confirmed Ergocalciferol (Vitamin D2) 50,000 unit PO Q14D 06/13/14 02/17/19 [Drisdol] Lovastatin [Mevacor] 40 mg PO MOTUWETHFR 06/13/14 02/17/19 Cetirizine HCl [Zyrtec] 10 mg PO DAILY PRN 07/09/17 02/17/19 Ibuprofen [Motrin] 400 mg PO Q6HR PRN 07/09/17 02/17/19 Omeprazole [PriLOSEC] 20 mg PO DAILY 03/07/18 02/17/19 Melatonin 5 mg PO HS PRN 02/16/19 02/17/19 Multivitamins, Thera [Multivitamin 1 tab PO DAILY 02/16/19 02/17/19 (formulary)] Allergies Allergy/AdvReac Type Severity Reaction Status Date / Time codeine AdvReac Nausea & Verified 04/10/21 12:54 Vomiting Review of Systems ROS Statement: Those systems with pertinent positive or pertinent negative responses have been documented in the HPI. ROS Other: All systems not noted in ROS Statement are negative. Past Medical History Past Medical History: Eye Disorder, GERD/Reflux, Hyperlipidemia, Hypertension Additional Past Medical History / Comment(s): hx anemia, hx colon polyps, hx hemorrhage suad eye d/t to retinal tears; HTN INTERMITTENT. History of Any Multi-Drug Resistant Organisms: None Reported Past Surgical History: Hysterectomy, Orthopedic Surgery Additional Past Surgical History / Comment(s): suad hands trigger finger x5 , D&C, Rectocele repair, hemorrhoidectomy. EGD, COLONOSCOPY Past Anesthesia/Blood Transfusion Reactions: Motion Sickness, Postoperative Nausea & Vomiting (PONV) Past Psychological History: No Psychological Hx Reported Smoking Status: Never smoker Past Alcohol Use History: Rare Past Drug Use History: None Reported - Past Family History Sister(s) Family Medical History: Cancer Father Family Medical History: Cancer General Exam Limitations: no limitations General appearance: alert, in no apparent distress Head exam: Present: atraumatic, normocephalic, normal inspection Respiratory exam: Present: normal lung sounds bilaterally. Absent: respiratory distress, wheezes, rales, rhonchi, stridor Cardiovascular Exam: Present: regular rate, normal rhythm, normal heart sounds. Absent: systolic murmur, diastolic murmur, rubs, gallop, clicks Neurological exam: Present: alert, oriented X3, CN II-XII intact Psychiatric exam: Present: normal affect, normal mood Skin exam: Present: other (1 cm laceration to the distal tip of the left middle finger. Visible subcutaneous tissue without active bleeding.) Course Vital Signs 07/22/23 07/22/23 13:48 15:12 Temperature 98.5 F 98.4 F Pulse Rate 79 68 Respiratory 16 18 Rate Blood Pressure 132/83 126/70 O2 Sat by Pulse 97 97 Oximetry Procedures - Laceration Laceration #1 Consent Obtained: verbal consent Indication: laceration Site: other (left middle finger) Size (cm): 1 Description: linear Depth: simple, single layer Anesthetic Used: lidocaine 1% Anesthesia Technique: local infiltration Amount (mls): 2 Pre-repair: wound explored, irrigated extensively Type of Sutures: nylon Size of Sutures: 5-0 Number of Sutures: 1 Technique: other (figure of 8) Medical Decision Making - Medical Decision Making This is a 67-year-old female who presents to the emergency department for an injury to the left middle finger. Was pt. sent in by a medical professional or institution? @ -No Did you speak to anyone other than the patient for history? @ -No Did you review nursing and triage notes? @ -Yes, and I agree, it is accurate with regards to the patient's symptoms. Were old charts reviewed? @ -No Differential Diagnosis? @ -Differential Musculoskeletal: Muscular strain, contusion, ligament sprain, fracture, arthritis, septic arthritis, bursitis, cellulitis, muscle spasm, nerve compression, DVT, arterial occlusion, herpes zoster, electrolyte abnormality, tumor.... This is not meant to be in all inclusive list EKG interpreted by me (3pts min.)? @ -Not obtained X-rays interpreted by me (1pt min.)? @ -X-ray of the left middle finger obtained. My interpretation identifies no acute fractures. CT interpreted by me (1pt min.)? @ -Not obtained U/S interpreted by me (1pt. min.)? @ -Not obtained What testing was considered but not performed? (CT, X-rays, U/S, labs)? Why? @ -None What meds were considered but not given? Why? @ -None Did you discuss the management of the patient with other professionals? @ -No Did you reconcile home meds? @ -No Was smoking cessation discussed for >3mins.? @ -No Was critical care preformed (if so, how long)? @ -No Were there social determinants of health that impacted care today? How? (Homelessness, low income, unemployed, alcoholism, drug addiction, transportation, low edu. Level, literacy, decrease access to med. care, halfway, rehab)? @ -No Was there de-escalation of care discussed even if they declined? (Discuss DNR or withdrawal of care, Hospice)? @ -No What co-morbidities impacted this encounter? (DM, HTN, Smoking, COPD, CAD, Cancer, CVA, Hep., AIDS, mental health diagnosis, sleep apnea, morbid obesity)? @ -None Was patient admitted / discharged? @ -Discharged. X-ray of the left middle finger obtained revealing no acute fractures. Her tetanus vaccine was updated. One arxeag-oe-fmnah suture was placed. She is instructed to return in 5-7 days for suture removal. Advised ibuprofen and Tylenol as needed for pain relief. Undiagnosed new problem with uncertain prognosis? @ -None Drug Therapy requiring intensive monitoring for toxicity (Heparin, Nitro, Insulin, Cardizem)? @ -None Were any procedures done? @ -Laceration repair with sutures Diagnosis/symptom? @ -Laceration Acute, or Chronic, or Acute on Chronic? @ -Acute Uncomplicated (without systemic symptoms) or Complicated (systemic symptoms)? @ -Uncomplicated Side effects of treatment? @ -None Exacerbation, Progression, or Severe Exacerbation] @ -Not applicable Poses a threat to life or bodily function? @ -No Return precautions reviewed in depth, the patient is instructed to return to the emergency department with any new, worsening, or concerning symptoms. Patient verbalized understanding. This case was discussed in detail with the attending ED physician, Dr. White. Presentation, findings, and treatment plan discussed in detail as we ll. - Radiology Data Radiology results: report reviewed, image reviewed Disposition Clinical Impression: Laceration Disposition: HOME SELF-CARE Instructions (If sedation given, give patient instructions): Care For Your Stitches (ED) Additional Instructions: Return to the emergency department with any new, worsening, or concerning symptoms and in 5-7 days for removal of the stitches. Keep them dry for the first 24 hours. Alternate with ibuprofen and Tylenol as needed for pain relief. Is patient prescribed a controlled substance at d/c from ED?: No Referrals: Sami Soriano MD [Primary Care Provider] - 1-2 days
--- NOTE | 2023-07-22 14:26 | XR ---
EXAMINATION TYPE: XR finger LT DATE OF EXAM: 07/22/2023 COMPARISON: NONE HISTORY: Pain TECHNIQUE: Three views are submitted. FINDINGS: The osseous structures are intact. The joint spaces are preserved and there is no acute fracture or dislocation. IMPRESSION: 1. No definite acute fracture or dislocation if symptoms persist, follow-up study in 7 to 10 days wo uld be suggested
[2023-07-22 15:37] VITALS: BP 126/70; PULSE 68; RESP 18; TEMP 98.4
== END 2023-07-22 15:15 | disposition home or self-care (01) ==
LOC: EC 13:24
DX: S61.213A Laceration without foreign body of left middle finger without damage to nail, initial encounter (principal); K21.9 Gastro-esophageal reflux disease without esophagitis; E78.5 Hyperlipidemia, unspecified; I10 Essential (primary) hypertension; Z79.899 Other long term (current) drug therapy; Z88.5 Allergy status to narcotic agent; Z23 Encounter for immunization; X50.0XXA Overexertion from strenuous movement or load, initial encounter
CPT/HCPCS: 99283; 90471; 73140; 90715; 12001; J2001

== ENCOUNTER 2023-08-19 18:51 | Emergency (ER) | payer MEDICARE, OTHER ==
[2023-08-19 19:04] VITALS: RESP 18; TEMP 97.6
[2023-08-19] MEDS ORDERED: MORPHINE SULFATE 4 MG/ML SYRINGE IM STA (19:21)
[2023-08-19] MEDS ORDERED: ONDANSETRON ODT 8 MG TAB.RAPDIS PO STA (19:21)
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
[2023-08-19] MEDS ORDERED: MORPHINE SULFATE 2 MG/ML SYRINGE IVP STA (21:08)
[2023-08-19] MEDS ORDERED: KETOROLAC 15 MG/ML 1 ML VIAL IVP STA (21:08)
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
[2023-08-19 21:53] VITALS: BP 150/83; PULSE 62
== END 2023-08-19 22:05 | disposition home or self-care (01) ==
LOC: EC 18:51
DX: S13.9XXA Sprain of joints and ligaments of unspecified parts of neck, initial encounter (principal); S20.219A Contusion of unspecified front wall of thorax, initial encounter; K21.9 Gastro-esophageal reflux disease without esophagitis; E78.5 Hyperlipidemia, unspecified; I10 Essential (primary) hypertension; Z79.899 Other long term (current) drug therapy; Z88.5 Allergy status to narcotic agent; V89.2XXA Person injured in unspecified motor-vehicle accident, traffic, initial encounter; Y92.411 Interstate highway as the place of occurrence of the external cause
CPT/HCPCS: 71101; 72040; 99285; 96374; 96375; 96372; J2270 ×2; J1885

== ENCOUNTER → 2023-11-12 | Outpatient (CLI) | payer MEDICARE, OTHER ==
--- NOTE | 2023-11-12 21:09 | MM ---
Reason for Exam: Screening (asymptomatic). Last mammogram was performed 1 year(s) and 1 month(s) ago. Patient History: Menarche at age 10. First Full-Term at age 23. Hysterectomy at age 42. Postmenopausal. Patient has history of breast feeding. Unspecified Hormone for 6 months from age 20 until age 21. Risk Values: [place] 5 year model risk: 1.7%. NCI Lifetime model risk: 5.5%. Prior Study Comparison: 03/31/2020 Bilateral Screening Mammogram, [facility]. 05/03/2021 Bilateral Screening Mammogram, [facility]. 09/24/2022 Bilateral MG 3D screening mammo w/cad, [facility]. Tissue Density: There are scattered fibroglandular densities. Findings: Analyzed By CAD. The pattern is symmetrical. Scattered benign punctate calcifications are present bilaterally. Chronic nodularity is present bilaterally. No significant interval changes are evident. No suspicious groups of microcalcifications, spiculated or lobular masses, architectural distortion or other secondary signs of malignancy are mammographically apparent. Overall Assessment: Benign, BI-RAD 2 Management: Screening Mammogram of both breasts in 1 year. A negative mammogram report should not preclude additional follow up of suspicious palpable abnormalities. Patient should continue monthly self breast exam. A clinical breast exam by your physician is recommended on an annual basis and results should be correlated with mammographic findings. Electronically signed and approved by: Dale See D.O. Radiologis
== END | disposition home or self-care (01) ==
LOC: RADMAMWWP 08:43
PROVIDERS: ATTEND Internal Medicine Geriatric Medicine
DX: Z12.31 Encounter for screening mammogram for malignant neoplasm of breast (principal); Z78.0 Asymptomatic menopausal state
CPT/HCPCS: 77063; 77067

== ENCOUNTER 2024-08-02 04:35 | Observation (INO) | payer MEDICAID, MEDICARE, OTHER ==
--- NOTE | 2024-08-02 04:48 | ED ---
Chest Pain HPI - General Chief Complaint: Chest Pain Stated Complaint: Chest pain Time Seen by Provider: 08/02/24 04:43 Source: EMS, RN notes reviewed, old records reviewed Mode of arrival: EMS Limitations: no limitations - History of Present Illness Initial Comments: This is a 69 female to ER for evaluation of chest pain. Patient has chest pain with history of heart disease coming in with reflux symptoms. History of left- sided chest pain concern for heart MD Complaint: chest pain -: hour(s) Onset: during rest, during exertion, awoke with symptoms Pain Location: left chest Pain Radiation: none Severity: moderate Severity scale (1-10): 4 Quality: tightness Consistency: constant Improves With: nothing Worsens With: nothing Anginal Symptoms: sense of impending doom Other Symptoms: palpitations Treatments Prior to Arrival: none - Related Data Home Medications Medication Instructions Recorded Confirmed Biotin [Biotin Disolve] 10,000 mcg PO DAILY 08/02/24 08/02/24 Co Q-10 100 mg PO HS 08/02/24 08/02/24 Cyanocobalamin (Vitamin B-12) 1,000 mcg PO DAILY 08/02/24 08/02/24 [Vitamin B-12] Ergocalciferol [Vitamin D2 (1250 1,250 mcg PO Q14D 08/02/24 08/02/24 Mcg = [id number] Iu)] Escitalopram [Lexapro] 10 mg PO DAILY 08/02/24 08/02/24 Golo Release 1 cap PO TID-W/MEALS 08/02/24 08/02/24 Rosuvastatin [Crestor] 10 mg PO HS 08/02/24 08/02/24 Previous Rx's Medication Instructions Recorded Meclizine [Antivert] 25 mg PO TID PRN #30 tab 08/02/24 Omeprazole [PriLOSEC] 20 mg PO BID 7 Days #14 cap 08/02/24 Allergies Allergy/AdvReac Type Severity Reaction Status Date / Time codeine AdvReac Nausea & Verified 08/02/24 08:33 Vomiting Review of Systems ROS Statement: Those systems with pertinent positive or pertinent negative responses have been documented in the HPI. ROS Other: All systems not noted in ROS Statement are negative. EKG Findings - EKG Comments: EKG Findings:: EKG sinus 70 PA 185 QRS 106 QTc 437 - EKG Results: EKG: interpreted by BAUTISTA Past Medical History Past Medical History: Eye Disorder, GERD/Reflux, Hyperlipidemia, Hypertension Additional Past Medical History / Comment(s): hx anemia, hx colon polyps, hx hemorrhage suad eye d/t to retinal tears; HTN INTERMITTENT. History of Any Multi-Drug Resistant Organisms: None Reported Past Surgical History: Hysterectomy, Orthopedic Surgery Additional Past Surgical History / Comment(s): suad hands trigger finger x5 , D&C, Rectocele repair, hemorrhoidectomy. EGD, COLONOSCOPY Past Anesthesia/Blood Transfusion Reactions: Motion Sickness, Postoperative Nausea & Vomiting (PONV) Past Psychological History: No Psychological Hx Reported Smoking Status: Never smoker Past Alcohol Use History: Rare Past Drug Use History: None Reported - Past Family History Sister(s) Family Medical History: Cancer Father Family Medical History: Cancer General Exam General appearance: alert, in no apparent distress, anxious Head exam: Present: atraumatic, normocephalic, normal inspection Eye exam: Present: normal appearance, PERRL, EOMI. Absent: scleral icterus, conjunctival injection, periorbital swelling ENT exam: Present: normal exam, mucous membranes moist Neck exam: Present: normal inspection. Absent: tenderness, meningismus, lymphadenopathy Respiratory exam: Present: respiratory distress, wheezes, decreased breath sounds, prolonged expiratory. Absent: rales, rhonchi, stridor Cardiovascular Exam: Present: regular rate, normal rhythm, normal heart sounds. Absent: systolic murmur, diastolic murmur, rubs, gallop, clicks GI/Abdominal exam: Present: soft, normal bowel sounds. Absent: distended, tenderness, guarding, rebound, rigid Extremities exam: Present: normal inspection, full ROM, normal capillary refill. Absent: tenderness, pedal edema, joint swelling, calf tenderness Back exam: Present: normal inspection Neurological exam: Present: alert, oriented X3, CN II-XII intact Psychiatric exam: Present: normal affect, normal mood Skin exam: Present: warm, dry, intact, normal color. Absent: rash Course Vital Signs 08/02/24 08/02/24 08/02/24 04:36 05:00 06:00 Temperature 97.6 F Pulse Rate 71 67 62 Respiratory 18 15 11 L Rate Blood Pressure 149/79 144/78 140/76 O2 Sat by Pulse 99 95 98 Oximetry 08/02/24 08/02/24 08/02/24 07:43 08:45 10:22 Temperature 97.6 F Pulse Rate 64 Respiratory 15 15 15 Rate Blood Pressure 116/53 O2 Sat by Pulse 97 Oximetry 08/02/24 08/02/24 11:43 14:25 Temperature 98.1 F Pulse Rate 65 68 Respiratory 18 18 Rate Blood Pressure 122/77 124/78 O2 Sat by Pulse 96 96 Oximetry - Reevaluation(s) Reevaluation #1: 08/02/24 04:48 Medical record is reviewed Reevaluation #2: 08/02/24 06:09 Patient symptoms unchanged Reevaluation #3: 08/02/24 06:09 Informed of results and questions answered Reevaluation #4: Was pt. sent in by a medical professional or institution (NAIN Valdez, [employer] CONSULT[employer], urgent care, hospital, or care home...) When possible be specific @ -no Did you speak to anyone other than the patient for history (EMS, parent, family, police, friend...)? What history was obtained from this source @ -no Did you review nursing and triage notes (agree or disagree)? Why? @ -agree Are old charts reviewed (outside hosp., previous admission, EMS record, old EKG, old radiological studies, urgent care reports/EKG's, care home records)? Report findings @ -yes Differential Diagnosis (chest pain, altered mental status, abdominal pain women, abdominal pain men, vaginal bleeding, weakness, fever, dyspnea, syncope, headache, dizziness, GI bleed, back pain, seizure, CVA, palpatations, mental health, musculoskeletal)? @ -prior EKG interpreted by me (3pts min.). @ -yes X-rays interpreted by me (1pt min.). @ -yes negative for acute disease CT interpreted by me (1pt min.). @ -no U/S interpreted by me (1pt. min.). @ -no What testing was considered but not performed or refused? (CT, X-rays, U/S, labs)? Why? @ -none What meds were considered but not given or refused? Why? @ -none Did you discuss the management of the patient with other professionals (professionals i.e. NAIN Valdez, [employer] CONSULTANT, lab, RT, psych nurse, social service agency director, dental hygiene professor, teacher, founder and chief executive officer, high risk case manager)? Give summary @ -no Was smoking cessation discussed for >3mins.? @ -no Was critical care preformed (if so, how long)? @ -no Were there social determinants of health that impacted care today? How? (Homelessness, low income, unemployed, alcoholism, drug addiction, transport ation, low edu. Level, literacy, decrease access to med. care, nursing home, rehab)? @ -none Was there de-escalation of care discussed even if they declined (Discuss DNR or withdrawal of care, Hospice)? DNR status @ -no What co-morbidities impacted this encounter? (DM, HTN, Smoking, COPD, CAD, Cancer, CVA, ARF, Chemo, Hep., AIDS, mental health diagnosis, sleep apnea, morbid obesity)? @ -none Was patient admitted / discharged? Hospital course, mention meds given and route, prescriptions, significant lab abnormalities, going to OR and other pertinent info. @ - 69 female to the ER for COPD CHF acute kidney injury. Patient symptoms are relatively unchanged patient significantly short of breath here in the ER. Undiagnosed new problem with uncertain prognosis? @ -no Drug Therapy requiring intensive monitoring for toxicity (Heparin, Nitro, Insulin, Cardizem)? @ -no Were any procedures done? @ -no Diagnosis/symptom? @ -COPD with exacerbation Acute, or Chronic, or Acute on Chronic? @ -Acute Uncomplicated (without systemic symptoms) or Complicated (systemic symptoms)? @ -Complicated Side effects of treatment? @ -no Exacerbation, Progression, or Severe Exacerbation? @ -exacerbation Poses a threat to life or bodily function? How? (Chest pain, USA, NH, pneumonia, PE, COPD, DKA, ARF, appy, cholecystitis, CVA, Diverticulitis, Homicidal, Suicidal, threat to staff... and all critical care pts) @ -yes respiratory distress Reevaluation #5: Differential Chest Pain: Stable Angina, Unstable Angina, STEMI, NSTEMI Aortic Dissection, Pneumothorax, Musculoskeletal, Esophageal Spasm GERD, Cholecystitis, Pancreatitis, Zoster, this is not meant to be an all-inclusive list. - Consultations Consultation #1: Spoke with [facility] who agrees to admit this patient Chest Pain MDM - MDM 69 female to the ER for COPD CHF acute kidney injury. Patient symptoms are relatively unchanged patient significantly short of breath here in the ER. Disposition Clinical Impression: Chest pain Disposition: ADMITTED IP TO THIS HOSP Condition: Fair Is patient prescribed a controlled substance at d/c from ED?: No Time of Disposition: 06:00
[2024-08-02] MEDS: ONDANSETRON 4 MG/2 ML VIAL IVP STA (05:03)
[2024-08-02] MEDS: SODIUM CHLORIDE 0.9% 1,000 ML IV STA (05:07)
[2024-08-02 05:28] LABS: ALT 20 U/L (4-34); AST 23 U/L (14-36); African American GFR (CKD) >90 (>60 ml/min/1.73 sqM); Albumin 4.1 g/dL (3.5-5.0); Alkaline Phosphatase 89 U/L (38-126); Anion Gap 5 mmol/L; Blood Urea Nitrogen 20 mg/dL (7-17); Calcium 8.8 mg/dL (8.4-10.2); Carbon Dioxide 23 mmol/L (22-30); Chloride 108 mmol/L (98-107); Glucose 123 mg/dL (74-99); Lipase 96 U/L (23-300); Non-African American GFR(CKD) 88 (>60 ml/min/1.73 sqM); Potassium 3.7 mmol/L (3.5-5.1); Sodium 136 mmol/L (137-145); Total Bilirubin 0.4 mg/dL (0.2-1.3); Total Protein 6.9 g/dL (6.3-8.2)
[2024-08-02 05:29] LABS: Basophils # (A) 0.1 k/uL (0-0.2); Basophils % (A) 1 %; Eosinophils # (A) 0.4 k/uL (0-0.7); Eosinophils % (A) 3 %; HCT 40.7 % (34.0-46.0); HGB 13.8 gm/dL (11.4-16.0); Lymphocytes # (A) 3.4 k/uL (1.0-4.8); Lymphocytes % (A) 30 %; MCH 30.6 pg (25.0-35.0); MCV 89.9 fL (80.0-100.0); Mean Platelet Volume 7.9; Monocytes # (A) 0.7 k/uL (0-1.0); Monocytes % (A) 6 %; Neutrophils # (A) 6.5 k/uL (1.3-7.7); Neutrophils % (A) 57 %; Platelet Count 319 k/uL (150-450); RBC 4.52 m/uL (3.80-5.40); RDW 12.5 % (11.5-15.5); WBC 11.3 k/uL (3.8-10.6)
[2024-08-02 05:37] LABS: NT-Pro-B-Type Natriuretic Pept <20 pg/mL
--- NOTE | 2024-08-02 05:47 | XR ---
EXAMINATION TYPE: XR chest 1V portable DATE OF EXAM: 08/02/2024 COMPARISON: Prior chest x-ray May 20, 2023 HISTORY: Chest pain and dizziness TECHNIQUE: Single frontal view of the chest is obtained. FINDINGS: Overlying EKG leads are present on current study. There is no focal air space opacity, ple ural effusion, or pneumothorax seen. Mild cardiomegaly is present with ectatic thoracic aorta is seen . The osseous structures are intact. IMPRESSION: Mild cardiomegaly without acute pulmonary process. [facility], , 08/02/2024 5:44 AM
[2024-08-02] MEDS ORDERED: NALOXONE 0.4 MG/ML 1 ML VIAL IV PRN (06:05)
[2024-08-02] MEDS ORDERED: ONDANSETRON 4 MG/2 ML VIAL IVP PRN (06:05)
[2024-08-02] MEDS ORDERED: MORPHINE SULFATE 4 MG/ML SYRINGE IV PRN (06:05)
[2024-08-02 06:15] LABS: INR 0.9 (<1.2); Partial Thromboplastin Time 24.8 sec (22.0-30.0); Prothrombin Time 10.1 sec (10.0-12.5)
[2024-08-02] MEDS: IPRATROPIUM-ALBUTEROL 3 ML NEB INHALATION STA (06:41)
[2024-08-02] MEDS: SODIUM CHLORIDE 0.9% 1,000 ML IV SCH (06:42)
[2024-08-02] MEDS ORDERED: ALBUTEROL NEBULIZED 2.5 MG/3 ML INHALATION SCH (08:00)
--- NOTE | 2024-08-02 09:10 | P.CRDCN ---
History of Present Illness Consult date: 08/02/24 History of present illness: HISTORY OF PRESENTING ILLNESS 69-year-old female presented to the [facility] because of symptoms of dizziness which she describes as a room spinning sensation along with some associated nausea. She was also having some diaphoresis along with some acid reflux and cardiac symptoms along with some substernal chest pressure. Due to this she presented to the hospital. Her initial troponin is negative, labs are essentially nonrevealing. ECG shows sinus rhythm with no significant ST or T wave changes concerning of ischemia at rest. Her chest x-ray does not show acute signs of pulmonary congestion or consolidation. D-dimer is negative, REVIEW OF SYSTEMS 14 point review of system is negative except what is mentioned above in HPI. PHYSICAL EXAMINATION Vital signs reviewed. Head: Normocephalic. Eyes: Sclerae nonicteric. Neck: Brisk carotid upstroke, no jugular venous distention. Lungs: Clear to auscultation. Heart: Regular rate and rhythm, S1-S2, no S3, no murmur or rub. Abdomen: Soft nontender, positive bowel sounds. Extremities: No edema, intact distal pulses. Neuro: Alert, oritented, no focal deficits. Detailed neuro exam was not performed. ASSESSMENT Dizziness and nausea, likely vertigo related. Room spinning sensation Upper respiratory viral infection few days ago Atypical chest pain, less likely ACS with initial negative troponin and nonischemic ECG Essential hypertension, controlled Dyslipidemia Obesity PLAN Trend troponins. Recommend outpatient echocardiogram and a treadmill echo stress test once patient's dizziness is improved. Primary team to evaluate the need for neurology consult to differentiate and further evaluate vertigo symptoms. Toñito Ramirez MD, FACC, RPVI Past Medical History Past Medical History: Eye Disorder, GERD/Reflux, Hyperlipidemia, Hypertension Additional Past Medical History / Comment(s): hx anemia, hx colon polyps, hx hemorrhage suad eye d/t to retinal tears; HTN INTERMITTENT. History of Any Multi-Drug Resistant Organisms: None Reported Past Surgical History: Hysterectomy, Orthopedic Surgery Additional Past Surgical History / Comment(s): suad hands trigger finger x5 , D&C, Rectocele repair, hemorrhoidectomy. EGD, COLONOSCOPY Past Anesthesia/Blood Transfusion Reactions: Motion Sickness, Postoperative Nausea & Vomiting (PONV) Past Psychological History: No Psychological Hx Reported Smoking Status: Never smoker Past Alcohol Use History: Rare Past Drug Use History: None Reported - Past Family History Sister(s) Family Medical History: Cancer Father Family Medical History: Cancer Medications and Allergies Home Medications Medication Instructions Recorded Confirmed Type Omeprazole [PriLOSEC] 20 mg PO DAILY 03/07/18 08/02/24 History Biotin [Biotin Disolve] 10,000 mcg PO DAILY 08/02/24 08/02/24 History Co Q-10 100 mg PO HS 08/02/24 08/02/24 History Cyanocobalamin (Vitamin B-12) 1,000 mcg PO DAILY 08/02/24 08/02/24 History [Vitamin B-12] Ergocalciferol [Vitamin D2 (1250 1,250 mcg PO Q14D 08/02/24 08/02/24 History Mcg = [id number] Iu)] Escitalopram [Lexapro] 10 mg PO DAILY 08/02/24 08/02/24 History Golo Release 1 cap PO TID-W/MEALS 08/02/24 08/02/24 History Rosuvastatin [Crestor] 10 mg PO HS 08/02/24 08/02/24 History amLODIPine [Norvasc] 5 mg PO DAILY 08/02/24 08/02/24 History Allergies Allergy/AdvReac Type Severity Reaction Status Date / Time codeine AdvReac Nausea & Verified 08/02/24 08:33 Vomiting Physical Exam Vitals: Vital Signs Temp Pulse Resp BP Pulse Ox 08/02/24 07:43 97.6 F 64 15 116/53 97 08/02/24 06:00 62 11 L 140/76 98 08/02/24 05:00 67 15 144/78 95 08/02/24 04:36 97.6 F 71 18 149/79 99 Intake and Output 08/01/24 08/02/24 08/02/24 22:59 06:59 14:59 Other: Weight 99.79 kg Results 08/02/24 04:50 08/02/24 04:50 Cardiac Enzymes 08/02/24 08/02/24 Range/Units 04:50 04:50 AST 23 (14-36) U/L Troponin I <0.012 (0.000-0.034) ng/mL Coagulation 08/02/24 Range/Units 04:50 PT 10.1 (10.0-12.5) sec APTT 24.8 (22.0-30.0) sec CBC 08/02/24 Range/Units 04:50 WBC 11.3 H (3.8-10.6) k/uL RBC 4.52 (3.80-5.40) m/uL Hgb 13.8 (11.4-16.0) gm/dL Hct 40.7 (34.0-46.0) % Plt Count 319 (150-450) k/uL Comprehensive Metabolic Panel 08/02/24 Range/Units 04:50 Sodium 136 L (137-145) mmol/L Potassium 3.7 (3.5-5.1) mmol/L Chloride 108 H (98-107) mmol/L Carbon Dioxide 23 (22-30) mmol/L BUN 20 H (7-17) mg/dL Creatinine 0.71 (0.52-1.04) mg/dL Glucose 123 H (74-99) mg/dL Calcium 8.8 (8.4-10.2) mg/dL AST 23 (14-36) U/L ALT 20 (4-34) U/L Alkaline Phosphatase 89 (38-126) U/L Total Protein 6.9 (6.3-8.2) g/dL Albumin 4.1 (3.5-5.0) g/dL Current Medications Generic Name Dose Route Start Last Admin Trade Name Freq PRN Reason Stop Dose Admin Sodium Chloride 1,000 mls @ 20 mls/hr 08/02/24 06:15 08/02/24 06:42 Saline 0.9% IV 20 mls/hr .Q24H HARRISON Administration Morphine Sulfate 4 mg 08/02/24 06:05 Morphine Sulfate 4 Mg/Ml Syringe IV Q4HR PRN Severe Pain (Scale 7 to 10) Naloxone HCl 0.2 mg 08/02/24 06:05 Naloxone 0.4 Mg/Ml 1 Ml Vial IV Q2M PRN Opioid Reversal Ondansetron HCl 4 mg 08/02/24 06:05 Ondansetron 4 Mg/2 Ml Vial IVP Q8HR PRN Nausea And Vomiting Intake and Output 08/01/24 08/02/24 08/02/24 22:59 06:59 14:59 Other: Weight 99.79 kg 08/02/24 04:50 08/02/24 04:50
[2024-08-02 10:00] LABS: African American GFR (CKD) >90 (>60 ml/min/1.73 sqM); Anion Gap 2 mmol/L; Blood Urea Nitrogen 16 mg/dL (7-17); Calcium 9.2 mg/dL (8.4-10.2); Carbon Dioxide 29 mmol/L (22-30); Chloride 107 mmol/L (98-107); Glucose 116 mg/dL (74-99); Magnesium 2.1 mg/dL (1.6-2.3); Non-African American GFR(CKD) 88 (>60 ml/min/1.73 sqM); Potassium 4.4 mmol/L (3.5-5.1); Sodium 138 mmol/L (137-145)
[2024-08-02 10:08] LABS: NT-Pro-B-Type Natriuretic Pept 21 pg/mL
--- NOTE | 2024-08-02 11:15 | CT ---
EXAMINATION TYPE: CT brain wo con CT DLP: 1172.4 mGycm, Automated exposure control for dose reduction was used. DATE OF EXAM: 08/02/2024 11:08 AM COMPARISON: Prior CT Brain from 09/26/2019, 10/20/2018. CLINICAL INDICATION:Female, 69 years old with history of dizziness, fall hit right lateral side of he ad no LOC, neck pain TECHNIQUE: Brain: Multiple axial CT images of the brain were obtained without IV contrast. . Coronal and sagitta l reformats reviewed. FINDINGS: Brain: Extra-axial spaces: No abnormal extra-axial fluid collections. Ventricular system: Within normal limits Cerebral parenchyma: No acute intraparenchymal hemorrhage or mass effect. The dailey-white junction is well differentiated. Cerebellum: Unremarkable. Mass effect: No evidence of midline shift. Intracranial vasculature: unremarkable Soft tissues: Normal. Calvarium/osseous structures: No depressed skull fracture. Paranasal sinuses and mastoid air cells: Clear Visualized orbits: Orbital contents are intact. IMPRESSION: No acute intracranial process. [facility], , 08/02/2024 11:12 AM
[2024-08-02 11:44] VITALS: RESP 18
[2024-08-02] MEDS: MECLIZINE 25 MG TAB PO SCH (11:44)
--- NOTE | 2024-08-02 11:49 | CA ---
Transthoracic Echo Report Name: Afia Zeng Age: 69 Gender: F : 1955 Exam Date: 08/02/2024 10:08 Exam Location: [facility] Ht (in): 66 Wt (lb): 220 Ordering Physician: Poli Valverde DO Attending/Referring Phys: Income Tax Advisor Sepideh Muller RDCS Procedure CPT: Indications: CP Cardiac Hx: Technical Quality: Fair Contrast 1: Total Dose (mL): Contrast 2: Total Dose (mL): MEASUREMENTS (Male / Female) Normal Values 2D ECHO LV Diastolic Diameter PLAX 4.5 cm 4.2 - 5.9 / 3.9 - 5.3 cm LV Systolic Diameter PLAX 3.3 cm IVS Diastolic Thickness 1.2 cm 0.6 - 1.0 / 0.6 - 0.9 cm LVPW Diastolic Thickness 1.1 cm 0.6 - 1.0 / 0.6 - 0.9 cm LV Relative Wall Thickness 0.5 RV Internal Dim ED PLAX 1.7 cm LA Systolic Diameter LX 3.5 cm 3.0 - 4.0 / 2.7 - 3.8 cm LV Diastolic Volume MOD BP 53.6 cm??? 67 - 155 / 56 - 104 cm??? LV Systolic Volume MOD BP 15.3 cm??? 22 - 58 / 19 - 49 cm??? LV Ejection Fraction MOD BP 71.4 % >= 55 % LV Cardiac Index MOD BP 976.5 cm???/min???m??? LV Diastolic Volume MOD 4C 61.5 cm??? LV Systolic Volume MOD 4C 18.3 cm??? LV Ejection Fraction MOD 4C 70.3 % LV Cardiac Index MOD 4C 1102.6 cm???/min???m??? LV Diastolic Length 4C 7.0 cm LV Systolic Length 4C 5.5 cm LV Diastolic Volume MOD 2C 45.5 cm??? LV Systolic Volume MOD 2C 11.9 cm??? LV Ejection Fraction MOD 2C 73.7 % LV Cardiac Index MOD 2C 854.5 cm???/min???m??? LV Diastolic Length 2C 6.7 cm LV Systolic Length 2C 5.0 cm LA Volume 64.5 cm??? 18 - 58 / 22 - 52 cm??? LA Volume Index 29.4 cm???/m??? 16 - 28 cm???/m??? M-MODE Aortic Root Diameter MM 3.0 cm LA Systolic Diameter MM 2.8 cm LA Ao Ratio MM 0.9 AV Cusp Separation MM 1.4 cm DOPPLER AV Peak Velocity 191.8 cm/s AV Peak Gradient 14.7 mmHg AV Mean Velocity 144.9 cm/s AV Mean Gradient 8.9 mmHg AV Velocity Time Integral 48.1 cm AI Peak Velocity 481.8 cm/s AI Peak Gradient 92.8 mmHg AI Pressure Half Time 738.7 ms LVOT Peak Velocity 115.5 cm/s LVOT Peak Gradient 5.3 mmHg LVOT Velocity Time Integral 28.7 cm MV Area PHT 2.6 cm??? Mitral E Point Velocity 93.2 cm/s Mitral A Point Velocity 112.1 cm/s Mitral E to A Ratio 0.8 MV Deceleration Time 288.2 ms TR Peak Velocity 219.2 cm/s TR Peak Gradient 19.2 mmHg Right Ventricular Systolic Press 24.0 mmHg FINDINGS Left Ventricle Left ventricular ejection fraction is estimated at55-60%. Mildly increased septal wall thickness. Mildly increased posterior wall thickness. No obvious regional wall motion abnormalities. Right Ventricle Normal right ventricular size and function. Right ventricular systolic pressure within normal limits. Right Atrium Mild right atrial dilatation. Left Atrium Mildly increased left atrial volume. Mildly increased left atrial area. Mitral Valve Structurally normal mitral valve. [id number]-[id number] mitral regurgitation. No mitral stenosis. Aortic Valve Diffuse thickening (sclerosis) of the aortic valve cusps without reduced excursion. Mild aortic regurgitation. Trileaflet aortic valve. Tricuspid Valve Structurally normal tricuspid valve. Mild tricuspid regurgitation. No tricuspid stenosis. Pulmonic Valve Structurally normal pulmonic valve. Trace pulmonic regurgitation. No pulmonic stenosis. Pericardium No pericardial or pleural effusion. Aorta Normal size aortic root and proximal ascending aorta. CONCLUSIONS LVEF 55 to 60% No obvious regional wall motion abnormality Mild mitral regurgitation. Mild aortic regurgitation Trileaflet aortic valve with sclerosis and thickening Mild biatrial dilated No significant pericardial effusion Previewed by: Dr Toñito Ramirez (Electronically Signed) Final Date: 02 August 2024 11:48
[2024-08-02 14:27] VITALS: BP 124/78; PULSE 68; TEMP 98.1
[2024-08-02 15:10] LABS: Chol/HDL Ratio 3.72 Ratio; LDL Cholesterol,Calculated 108.9 mg/dL (0.0-131.0); VLDL Calculation 19.14 mg/dL (5.00-40.00)
--- NOTE | 2024-08-03 01:26 | HP ---
HISTORY AND PHYSICAL This is a combined history and physical and discharge summary. CHIEF COMPLAINTS: Chest discomfort as well as dizziness and cold sweating. HISTORY OF PRESENT ILLNESS: This is a 69-year-old woman with a past medical history of multiple medical problems, admitted with complaints of chest discomfort, cold sweats, and dizziness at 3 a.m. and the patient came to [facility]. The patient had multiple evaluations including 2D echo. Cardiology saw the patient and recommended outpatient followup at this time. No regional wall motion abnormalities are noted. Basic labs are also within limits including troponin and D-dimer. There is no history of any fever, rigors, or chills. PAST MEDICAL HISTORY: Reviewed include GERD, hypertension, and hyperlipidemia. HOME MEDICATIONS: Reviewed include Crestor. Dose and rest of medications reviewed. ALLERGIES: Codeine. FAMILY HISTORY: Cancer. SOCIAL HISTORY: No history of smoking. REVIEW OF SYSTEMS: Fourteen-point review of systems is negative except as mentioned earlier. PHYSICAL EXAMINATION: VITAL SIGNS: Pulse is 65, blood pressure 120/70, respirations 18. HEENT: Conjunctivae normal. NECK: No JVD. CARDIOVASCULAR: S1, S2. RESPIRATIONS: Breath sounds diminished at the bases. No rhonchi. No crackles. ABDOMEN: Soft, nontender. LEGS: No edema. NERVOUS SYSTEM: Nonfocal. SKIN: No ulcer, rash, bleeding. JOINTS: No active deforming arthropathy. LABORATORY DATA: Reviewed. ASSESSMENT: 1. Chest discomfort, dizziness, cold sweats, rule out possible coronary artery disease, myocardial function ruled out. 2. Hypertension. 3. Hyperlipidemia. 4. Multiple complex medical issues. RECOMMENDATIONS AND DISCUSSION: This is a 69-year-old woman, who presented with multiple symptomatology at this time. The patient is medically stable. Cardiology recommended discharge on outpatient stress test. Otherwise, resume the home medications. Increase the dose of omeprazole b.i.d. for 7 days. Otherwise, closely follow up with primary physician and as well as Cardiology. MMODL / IJN: [id number] /
--- NOTE | 2024-08-06 09:50 | P.DS ---
Providers Date of admission: 08/02/24 06:06 Expected date of discharge: 08/02/24 Attending physician: Suzy Jimenez Consults: 08/02/24 06:51 Consult Physician Routine Consulting Provider: Jose M Busch Consult Reason/Comments: cp Do you want consulting provider notified?: Yes, Notify in am [facility] Course: Final diagnosis Chest pain, dizziness, cold sweats, ruled out possible coronary artery disease, myocardial infarction ruled out Hypertension history Hyperlipidemia Obesity with a BMI 35.5 GI prophylaxis DVT prophylaxis Full code Discharge disposition Patient is being discharged in a stable condition with guarded prognosis to home. Patient will follow-up with Dr. Soriano in the outpatient setting upon discharge. Patient is to continue with current cardiac medication adjustments and close outpatient follow-up with cardiology as scheduled. Recommend outpatient stress testing per cardiology. Total time taken is greater than 35 minutes. Hospital course This is a 69-year-old female who was recently admitted with chest pain with episode of dizziness and cold sweats being closely monitored. Patient evaluated by cardiology underwent echo and symptoms have resolved recommending outpatient follow-up with further testing. Patient reports to feeling improved and would like to go home. Please refer to cardiology note for further HPI. Currently no reports of chest pain, shortness of breath, or palpitations. Patient is afebrile. No reports of nausea or vomiting and patient is tolerating diet. Patient will be discharged home today. Guarded prognosis and high risk for readmissions given comorbidities. Physical exam: Gen: This is a pleasant 69-year-old female who is awake, alert and oriented x 3, well-developed, elderly appearing, obese HEENT: Head is atraumatic, normocephalic. Pupils equal, round. Sclerae is anicteric. NECK: Supple. No JVD. No lymphadenopathy. No thyromegaly. LUNGS: Diminished breath sounds bilaterally otherwise clear to auscultation. No wheezes or rhonchi. No intercostal retractions. HEART: S1, S2 are muffled ABDOMEN: Soft. Obese. Bowel sounds are present. No masses. No tenderness. EXTREMITIES: No pedal edema. No calf tenderness. NEUROLOGICAL: Patient is awake, alert and oriented x3. Cranial nerves 2 through 12 are grossly intact. Please refer to medication reconciliation sheet for a list of medications. The impression and plan of care has been dictated by Bernice Nash, Nurse Practitioner as directed. Dr. Tony MD I have performed a history and examination and MDM of this patient, discussed the same with the dictator, and agree with the dictator's assessment and plan as written ,documented as a scribe. Based on total visit time, I have performed more than 50% of the visit. Patient Condition at Discharge: Fair Plan - Discharge Summary New Discharge Prescriptions: New Meclizine [Antivert] 25 mg PO TID PRN #30 tab PRN Reason: Vertigo Continue Escitalopram [Lexapro] 10 mg PO DAILY Cyanocobalamin (Vitamin B-12) [Vitamin B-12] 1,000 mcg PO DAILY Ergocalciferol [Vitamin D2 (1250 Mcg = 96573 Iu)] 1,250 mcg PO Q14D Rosuvastatin [Crestor] 10 mg PO HS Biotin [Biotin Disolve] 10,000 mcg PO DAILY Golo Release 1 cap PO TID-W/MEALS Co Q-10 100 mg PO HS Changed Omeprazole [PriLOSEC] 20 mg PO BID 7 Days #14 cap Discontinued amLODIPine [Norvasc] 5 mg PO DAILY Discharge Medication List Biotin [Biotin Disolve] 10,000 mcg PO DAILY 08/02/24 [History] Co Q-10 100 mg PO HS 08/02/24 [History] Cyanocobalamin (Vitamin B-12) [Vitamin B-12] 1,000 mcg PO DAILY 08/02/24 [History] Ergocalciferol [Vitamin D2 (1250 Mcg = 74569 Iu)] 1,250 mcg PO Q14D 08/02/24 [History] Escitalopram [Lexapro] 10 mg PO DAILY 08/02/24 [History] Golo Release 1 cap PO TID-W/MEALS 08/02/24 [History] Meclizine [Antivert] 25 mg PO TID PRN #30 tab 08/02/24 [Rx] Omeprazole [PriLOSEC] 20 mg PO BID 7 Days #14 cap 08/02/24 [Rx] Rosuvastatin [Crestor] 10 mg PO HS 08/02/24 [History] Follow up Appointment(s)/Referral(s): Toñito Ramirez MD [Medical Doctor] - 1 Week Sami Soriano MD [Primary Care Provider] - 1-2 days Activity/Diet/Wound Care/Special Instructions: Activity limited until follow-up Follow-up with primary care provider on discharge Continue taking medications as prescribed Follow-up with cardiology and schedule outpatient stress test Continue heart healthy diet Continue taking omeprazole twice daily for the next 1 week and then continue taking daily thereafter Discharge Disposition: HOME SELF-CARE
== END 2024-08-02 14:25 | disposition home or self-care (01) ==
LOC: EC 04:35 → 6NMEDSUR 06:06
PROVIDERS: ADMIT Hospitalist; ATTEND Hospitalist
DX: R07.89 Other chest pain (principal); R42 Dizziness and giddiness; K21.9 Gastro-esophageal reflux disease without esophagitis; E66.9 Obesity, unspecified; E78.5 Hyperlipidemia, unspecified; I10 Essential (primary) hypertension; Z88.5 Allergy status to narcotic agent; Z68.35 Body mass index [BMI] 35.0-35.9, adult; Z79.899 Other long term (current) drug therapy
CPT/HCPCS: 96374; 99285; 36415; 93005; 93306; 85379; 83880; 80061; 80053; 80048; 84443; 83690; 83735; 84484; 85025; 85610; 85730; 83036; 71045; 70450; G0378; J2405

== ENCOUNTER 2024-11-02 08:10 | Day surgery (SDC) | payer MEDICARE ==
[2024-11-02 08:37] VITALS: TEMP 97.4
[2024-11-02] MEDS: IV FLUID CONTINUATION 1,000 ML IV ONE (08:39)
[2024-11-02] MEDS: LIDOCAINE 1% (10MG/ML) FOR IV START INTRADERMA PRN (08:39)
[2024-11-02] MEDS: LACTATED RINGERS 1,000 ML IV SCH (08:39)
[2024-11-02] MEDS ORDERED: LIDOCAINE 1% INJ 10MG/ML (20 ML MDV) ONE (09:06)
[2024-11-02] MEDS ORDERED: PROPOFOL 10 MG/ML 20 ML VIAL IV ONE (09:06)
--- NOTE | 2024-11-02 09:23 | P.PCN ---
Date of Procedure: 11/02/24 Procedure(s) Performed: BRIEF HISTORY: Patient is a 69-year-old pleasant white female scheduled for an elective colonoscopy as a part of screening for for prior history of colon polyps. Last colonoscopy was 5 years ago. PROCEDURE PERFORMED: Colonoscopy. PREOPERATIVE DIAGNOSIS: Screening for history of colon polyps. IV sedation per Anesthesia. PROCEDURE: After informed consent was obtained, the patient, was brought into the endoscopy unit. IV sedation was administered by Anesthesia under continuous monitoring. Digital rectal examination was normal. Initially the Olympus CF-160 flexible video colonoscope was then inserted in the rectum, gradually advanced into the cecum without any difficulty. Careful examination was performed as the scope was gradually being withdrawn. Ileocecal valve and the appendiceal orifice were visualized and appeared normal. Prep was excellent. Mucosa of the cecum, ascending colon, transverse colon, descending colon, sigmoid colon, and rectum appeared normal. Retroflexion was performed in the rectum and no lesions were seen. The patient tolerated the procedure well. IMPRESSION: Normal-appearing colon from rectum to cecum no evidence of colorectal neoplasia. RECOMMENDATIONS: Findings of this examination were discussed with the patient as well as her family. She was advised to have repeat screening colonoscopy in 10 years..
[2024-11-02 09:58] VITALS: BP 134/81; PULSE 74; RESP 18
== END 2024-11-02 10:07 | disposition home or self-care (01) ==
LOC: ORWHC2ENDO 08:10
PROVIDERS: ATTEND Internal Medicine Gastroenterology
DX: Z12.11 Encounter for screening for malignant neoplasm of colon (principal); I10 Essential (primary) hypertension; E78.5 Hyperlipidemia, unspecified; M19.90 Unspecified osteoarthritis, unspecified site; F41.9 Anxiety disorder, unspecified; K21.9 Gastro-esophageal reflux disease without esophagitis; Z86.0100 Personal history of colon polyps, unspecified; Z79.1 Long term (current) use of non-steroidal anti-inflammatories (NSAID); Z79.899 Other long term (current) drug therapy
CPT/HCPCS: J2003; J2704; G0105; 45378

== ENCOUNTER → 2024-11-15 | Outpatient (CLI) | payer MEDICARE ==
--- NOTE | 2024-11-15 17:23 | BD ---
EXAMINATION TYPE: Axial Bone Density DATE OF EXAM: 11/15/2024 CLINICAL HISTORY: 69 years old Female. ICD-10 CODE: M81.0 OSTEOPOROSIS , Additional History: Height: 64.5 Weight: 221.8 FRAX RISK QUESTIONS: Alcohol (3 or more units per day): no Family History (Parent hip fracture): no Glucocorticoids (More than 3mos): no (Ex: prednisone, prednisolone, methylprednisolone, dexamethasone, and hydrocortisone). History of Fracture in Adulthood: no Secondary Osteoporosis: 1. Type 1 Diabetes: no 2. Hyperthyroidism: no 3. Menopause before 45: no 4. Malnutrition: no 5. Chronic liver disease: no Rheumatoid Arthritis: no Current Tobacco Use: no RISK FACTORS HISTORY OF: Hip Fracture (Right/Left): no Spine Fracture: no History of Wrist Fracture: no Surgery to Spine/Hip(right/left)/Wrist (right/left): no MEDICATIONS: Thyroid Medications: no Osteoporosis Medications: no EXAM MEASUREMENTS: Bone mineral densitometry was performed using the [employer] System. Bone mineral density as measured about the Lumbar spine is: ----- L1-L4(G/cm2): 1.234 T Score Values are as follows: ----- L1: -0.4 ----- L2: 0.0 ----- L3: 0.8 ----- L4: 1.0 ----- L1-L4: 0.5 Z Score Values are as follows: ----- L1: 0.1 ----- L2: `0.5 ----- L3: 1.2 ----- L4: 1.5 ----- L1-L4: 0.9 Bone mineral density has: increased 2.0 % since study of: 09/24/2022 Bone mineral density about the R hip (g/cm2): 1.178 Bone mineral density about the L hip (g/cm2): 1.146 T Score values are as follows: -----R Neck: 0.3 -----L Neck: 0.1 -----R Total: 1.3 -----L Total: 1.1 Z Score values are as follows: -----R Neck: 1.2 -----L Neck: 1.0 -----R Total: 1.9 -----L Total: 1.7 Bone mineral density has: increased 1.36 % since study of: 09/24/2022 FRAX%s: The graph provided illustrates a 6.2% chance for a major osteoporotic fx and a 0.3% chance fo r the hips probability for fx in 10 years time. IMPRESSION: Normal (Values between +1 and -1 indicate normal bone mass). Consider repeating this study in 5 year s or sooner if there is some new clinical indication. NOTE: T-SCORE=SD OF THE YOUNG ADULT MEAN. [facility], , 11/15/2024 5:20 PM
--- NOTE | 2024-11-15 18:06 | MM ---
Reason for Exam: Screening (asymptomatic). Last mammogram was performed 1 year(s) and 1 month(s) ago. Patient History: Menarche at age 10. First Full-Term at age 23. Hysterectomy at age 42. Postmenopausal. Patient has history of breast feeding. Unspecified Hormone for 6 months from age 20 until age 21. Risk Values: Jessenia 5 year model risk: 1.7%. NCI Lifetime model risk: 5.2%. Prior Study Comparison: 05/03/2021 Bilateral Screening Mammogram, [facility]. 09/24/2022 Bilateral MG 3D screening mammo w/cad, [facility]. 11/12/2023 Bilateral MG 3D screening mammo w/cad, [facility]. Tissue Density: There are scattered areas of fibroglandular density. Findings: Analyzed By CAD. There is no suspicious group of microcalcifications or new suspicious mass in either breast. Overall Assessment: Negative, BI-RAD 1 Management: Screening Mammogram of both breasts in 1 year. Patient should continue monthly self-breast exams. A clinical breast exam by your physician is recommended on an annual basis. This exam should not preclude additional follow-up of suspicious palpable abnormalities. Note on Jessenia scores and lifetime risk: 1. A Jessenia score greater than 3% is considered moderate risk. If this is the case, consider specialist referral to assess eligibility for a risk reducing agent. 2. If overall lifetime risk for the development of breast cancer is 20% or higher, the patient may qualify for future screening with alternating mammogram and breast MRI. [facility], , 11/15/2024 6:03 PM. Electronically signed and approved by: Obed Grover M.D. Radiologist
== END | disposition home or self-care (01) ==
LOC: RADMAMWWP 10:30
PROVIDERS: ATTEND Internal Medicine Geriatric Medicine
DX: Z12.31 Encounter for screening mammogram for malignant neoplasm of breast (principal); M81.0 Age-related osteoporosis without current pathological fracture; R92.323 Mammographic fibroglandular density, bilateral breasts; Z78.0 Asymptomatic menopausal state
CPT/HCPCS: 77063; 77067; 77080